=== PATIENT | male | born 1960 | race Caucasian/White ===

== ENCOUNTER 2016-12-12 19:06 | Inpatient (IN) ==
--- NOTE | 2016-12-12 19:17 | Emergency Department Note ---
Disposition Clinical Impression: COPD (chronic obstructive pulmonary disease), Lung cancer Disposition: Admitted As Inpatient Condition: Fair Referrals: NO,PCP [Primary Care Provider] - Forms: ED Satisfaction Letter General Adult HPI - General Chief complaint: ED Shortness of Breath/Dyspnea Stated complaint: villa, CP Time Seen by Provider: 12/12/16 19:09 - Related Data Home Medications Medication Instructions Recorded Confirmed Albuterol Sulfate [Ventolin Hfa] 2 puff IH Q6HR PRN 06/06/15 06/23/16 Budesonide/Formoterol 160/4.5 2 puff IH BIDR 06/06/15 06/23/16 [Symbicort] Famotidine [Pepcid] 20 mg PO BID 06/06/15 06/23/16 Ipratropium/Albuterol Neb [Duoneb] 3 ml IH Q6HR 06/06/15 06/23/16 Pravastatin Sodium [Pravachol] 20 mg PO QPM 06/06/15 06/23/16 Roflumilast [Daliresp] 500 mcg PO DAILY 06/06/15 06/23/16 Previous Rx's Medication Instructions Recorded Montelukast [Singulair] 10 mg PO DAILY #30 tablet 06/08/15 Folic Acid 1 mg PO DAILY #30 tablet 09/18/15 Lisinopril-HCTZ 10-12.5 [Prinzide 1 each PO DAILY #30 tablet 09/18/15 10-12.5] Thiamine (B-1) [Vitamin B-1] 100 mg PO DAILY #30 tablet 09/18/15 Tiotropium [Spiriva] 18 mcg IH 0700 #30 inh 09/18/15 Vitamin B Complex/Vit C/Vit E 1 each PO DAILY #30 tablet 09/18/15 [Stresstab] Amoxicillin/Clavulanate [Augmentin] 875 mg PO BIDWM #20 tablet 06/23/16 predniSONE [PredniSONE] 40 mg PO DAILY #10 tablet 06/23/16 HYDROcodone/Acet 5/325 mg [[place] 1 tab PO Q6H #16 tab 08/29/16 5-325 mg] Promethazine/Dextromethorphan 5 ml PO Q4-6H #240 syrup 08/29/16 [Promethazine-Dm Syrup] levoFLOXacin [Levaquin] 500 mg PO DAILY #7 tablet 08/29/16 HYDROcodone/Acet 5/325 mg [[place] 1 tab PO Q6H #16 tab 09/23/16 5-325 mg] Allergies Allergy/AdvReac Type Severity Reaction Status Date / Time No Known Allergies Allergy Verified 06/23/16 11:39 Past Medical History - Past Medical History Medical history: Reports: asthma, COPD, hyperlipidemia, hypertension, other Surgical history: Reports: no surgical history Psychiatric history: Reports: no psych history - Social History Smoking Status: Current every day smoker Smokeless Tobacco Status: No Alcohol use: Reports: heavy, recent Drug use: Reports: none Course Vital Signs Temperature 0 F L 12/12/16 19:10 Pulse Rate 135 12/12/16 19:10 Respiratory Rate 20 12/12/16 19:10 Blood Pressure 123/79 12/12/16 19:10 O2 Sat by Pulse Oximetry 95 12/12/16 19:10 Temperature 97.6 F 12/12/16 19:44 Pulse Rate 130 12/12/16 19:44 Respiratory Rate 24 12/12/16 19:45 Blood Pressure 177/77 12/12/16 19:44 O2 Sat by Pulse Oximetry 98 12/12/16 19:45 Oxygen Delivery Oxygen Delivery Nasal Cannula Medical Decision Making - Lab Data Result diagrams: 12/12/16 19:39 12/12/16 19:39 Lab Results 12/12/16 12/12/16 12/12/16 Range/Units 19:39 19:39 19:39 WBC 13.8 H (4.3-11.1) K/mcL RBC 3.52 L (4.19-5.50) M/mcL Hgb 9.3 L (12.9-16.9) g/dL Hct 29.7 L (37.5-50.1) % MCV 84.4 (83.0-100.0) fL MCH 26.4 L (28.0-33.3) pg MCHC 31.3 L (31.6-35.5) g/dL RDW 15.2 H (11.5-14.5) % Plt Count 536 H (140-400) K/mcL MPV 8.9 L (9.4-12.4) fL Immature Gran % 0.3 (0-4) % Seg Neutrophils % 81.3 % Lymphocytes % 8.1 % Monocytes % 10.2 % Eosinophils % 0.0 % Basophils % 0.1 % Neutrophils # 11.2 H (1.6-8.9) K/mcL Lymphocytes # 1.1 (0.6-4.6) K/mcL Monocytes # 1.4 H (0.0-1.3) K/mcL Eosinophils # 0.0 (0.0-0.6) K/mcL Basophils # 0.0 (0.0-0.2) K/mcL Sodium 136 (136-145) mEq/L Potassium 3.9 (3.5-4.5) mEq/L Chloride 90 L (98-109) mEq/L Carbon Dioxide 29 (19-29) mEq/L BUN 12 (8-26) mg/dL Creatinine 0.61 L (0.72-1.25) mg/dL Est GFR ( Amer) > 60 (> 60) Est GFR (Non-Af Amer) > 60 (> 60) BUN/Creatinine Ratio 20 (6-26) Glucose 86 (70-99) mg/dL Calculated Osmolality 281 (280-300) Lactic Acid (0.5-2.2) mmol/L Calcium 9.8 (8.6-10.8) mg/dL Troponin I 0.00 (0-0.03) ng/mL B-Natriuretic Peptide (0-100) pg/mL 12/12/16 12/12/16 Range/Units 19:39 19:39 WBC (4.3-11.1) K/mcL RBC (4.19-5.50) M/mcL Hgb (12.9-16.9) g/dL Hct (37.5-50.1) % MCV (83.0-100.0) fL MCH (28.0-33.3) pg MCHC (31.6-35.5) g/dL RDW (11.5-14.5) % Plt Count (140-400) K/mcL MPV (9.4-12.4) fL Immature Gran % (0-4) % Seg Neutrophils % % Lymphocytes % % Monocytes % % Eosinophils % % Basophils % % Neutrophils # (1.6-8.9) K/mcL Lymphocytes # (0.6-4.6) K/mcL Monocytes # (0.0-1.3) K/mcL Eosinophils # (0.0-0.6) K/mcL Basophils # (0.0-0.2) K/mcL Sodium (136-145) mEq/L Potassium (3.5-4.5) mEq/L Chloride (98-109) mEq/L Carbon Dioxide (19-29) mEq/L BUN (8-26) mg/dL Creatinine (0.72-1.25) mg/dL Est GFR ( Amer) (> 60) Est GFR (Non-Af Amer) (> 60) BUN/Creatinine Ratio (6-26) Glucose (70-99) mg/dL Calculated Osmolality (280-300) Lactic Acid 1.4 (0.5-2.2) mmol/L Calcium (8.6-10.8) mg/dL Troponin I (0-0.03) ng/mL B-Natriuretic Peptide 43 (0-100) pg/mL Critical Care Time Critical Care Time: Yes Total Critical Care Time: 30 Attestation: Patient presented dyspneic. History of lung cancer. Hospitalist requested BiPAP Attestation Statement - Attestation Attestation: I examined this patient and my medical decision-making was reviewed with the [facility]/PA/Advanced Practice Nurse/Resident Physician. I agree with the documented findings, disposition and treatment plan as described except to the extent set forth below. [id number] time provided. Patient presents via EMS from home complaining of chest pain and dyspnea. He has a history of oxygen dependency, COPD, metastatic lung cancer. Tachycardic on exam. Mildly tachypneic. Patient seen and evaluated in conjunction with the resident physician doctor Fair 21:30: The admitting hospitalist recommended BiPAP and an arterial blood gas. The patient did not tolerate BiPAP. Based on his chest x-ray results the radiologist recommended a CT of his chest. It was mutually agreed in my discussion with the admitting hospitalist Dr. Friedman not to pursue a CT chest at this time due to the patient's inability to lay flat
[2016-12-12] MEDS ORDERED: methylPREDNISolone 125 MG/2 ML VIAL IVP ONE (19:19)
[2016-12-12] MEDS ORDERED: Ipratropium/Albuterol Neb 3 ML IH ONE (19:19)
--- NOTE | 2016-12-12 19:28 | Emergency Department Note ---
Disposition Clinical Impression: COPD (chronic obstructive pulmonary disease) Qualifiers: COPD type: unspecified COPD Qualified Code(s): J44.9 - Chronic obstructive pulmonary disease, unspecified Lung cancer Qualifiers: Laterality: unspecified laterality Lung location: unspecified part of lung Qualified Code(s): C34.90 - Malignant neoplasm of unspecified part of unspecified bronchus or lung Anemia Qualifiers: Anemia type: unspecified type Qualified Code(s): D64.9 - Anemia, unspecified Disposition: Admitted As Inpatient Condition: Fair Time of Disposition: 21:08 SOB HPI - General Chief Complaint: ED Shortness of Breath/Dyspnea Stated Complaint: villa, CP Time Seen by Provider: 12/12/16 19:09 Source: patient, EMS Limitations: no limitations Nursing Notes Reviewed: Yes Vital Signs Reviewed: Yes - History of Present Illness Patient is a 56-year-old male who presents to [facility] ED with a chief complaint of difficulty breathing. States the symptoms started approximately 3 days ago. Patient also complaining of some chest pain with this. Denies any nausea, vomiting, fever or chills. Patient is having some generalized abdominal pain and has not had a bowel movement in the last 3 days either. 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 Patient states he was being seen [facility] and receiving radiation treatments up until one month ago. Patient states he does not want to undergo this treatment anymore. I spoke with patient about his CODE STATUS wishes and he would like to be DNR CCA/DNI. Patient is open to talks about palliative care. Pt Subjective Complaint: shortness of breath Onset (ago): day(s) Severity: severe Consistency/Duration: gradually worsening Improves with: oxygen, rest, bronchodilators Worsens with: exertion Known history of: COPD, other (Lung CA) Associated symptoms: Reports: chest pain. Denies: fever, cough, diaphoresis, nausea/vomiting, abdominal pain Treatment prior to arrival: bronchodilator Cough present: No - Related Data Home oxygen amount: 3 liters Home Medications Medication Instructions Recorded Confirmed Albuterol Sulfate [Ventolin Hfa] 2 puff IH Q6HR PRN 06/06/15 06/23/16 Budesonide/Formoterol 160/4.5 2 puff IH BIDR 06/06/15 06/23/16 [Symbicort] Famotidine [Pepcid] 20 mg PO BID 06/06/15 06/23/16 Ipratropium/Albuterol Neb [Duoneb] 3 ml IH Q6HR 06/06/15 06/23/16 Pravastatin Sodium [Pravachol] 20 mg PO QPM 06/06/15 06/23/16 Roflumilast [Daliresp] 500 mcg PO DAILY 06/06/15 06/23/16 Previous Rx's Medication Instructions Recorded Montelukast [Singulair] 10 mg PO DAILY #30 tablet 06/08/15 Folic Acid 1 mg PO DAILY #30 tablet 09/18/15 Lisinopril-HCTZ 10-12.5 [Prinzide 1 each PO DAILY #30 tablet 09/18/15 10-12.5] Thiamine (B-1) [Vitamin B-1] 100 mg PO DAILY #30 tablet 09/18/15 Tiotropium [Spiriva] 18 mcg IH 0700 #30 inh 09/18/15 Vitamin B Complex/Vit C/Vit E 1 each PO DAILY #30 tablet 09/18/15 [Stresstab] Amoxicillin/Clavulanate [Augmentin] 875 mg PO BIDWM #20 tablet 06/23/16 predniSONE [PredniSONE] 40 mg PO DAILY #10 tablet 06/23/16 HYDROcodone/Acet 5/325 mg [[place] 1 tab PO Q6H #16 tab 08/29/16 5-325 mg] Promethazine/Dextromethorphan 5 ml PO Q4-6H #240 syrup 08/29/16 [Promethazine-Dm Syrup] levoFLOXacin [Levaquin] 500 mg PO DAILY #7 tablet 08/29/16 HYDROcodone/Acet 5/325 mg [[place] 1 tab PO Q6H #16 tab 09/23/16 5-325 mg] Allergies Allergy/AdvReac Type Severity Reaction Status Date / Time No Known Allergies Allergy Verified 06/23/16 11:39 All systems ED: reviewed and negative except as stated. Past Medical History - Past Medical History Attestation: Yes The following information was validated with the patient. Source: patient Medical history: Reports: asthma, COPD, hyperlipidemia, hypertension, other Surgical history: Reports: no surgical history Psychiatric history: Reports: no psych history - Social History Smoking Status: Current every day smoker Smokeless Tobacco Status: No Alcohol use: Reports: heavy, recent Drug use: Reports: none Physical Exam - General Limitations: no limitations General appearance: alert - Head Head exam: atraumatic, normocephalic, normal inspection - Eye Eye exam: Present: normal appearance, PERRL, EOMI - ENT ENT exam: normal exam, normal oropharynx, mucous membranes moist - Neck Neck exam: Present: normal inspection, full ROM, trachea midline - Chest Chest inspection: Present: normal inspection, symmetric chest wall rise - Respiratory Respiratory exam: Present: wheezes, other (tight breath sounds b/l) - Cardiovascular Cardiovascular exam: Present: normal rhythm, tachycardia - Abdominal Exam Abdominal exam: Present: soft, tenderness, diminished bowel sounds, hernia Abdominal tenderness: Present: diffuse - Extremities Exam Extremities exam: Present: normal inspection, full ROM. Absent: tenderness, pedal edema - Back Exam Back exam: Present: normal inspection, full ROM. Absent: tenderness - Neurological Exam Neurological exam: Present: alert - Psychiatric Psychiatric exam: Present: normal affect, normal mood - Skin Skin exam: Present: warm, dry, intact, normal color Course Course Narrative: Patient seen and examined. Difficulty breathing, suspect COPD exacerbation versus worsening lung cancer. Spoke with patient about CODE STATUS and he does not want any chest compressions and medications were to stop and does not want intubation. His CODE STATUS is DNR CCA/DNI. We will initiate dyspnea workup and give continuous DuoNeb treatment. - Reevaluation(s) Reevaluation #1: Lab work shows some mild leukocytosis, worsening anemia from previously. Chest x-ray shows right upper lobe opacification. Appears worse from previous chest x -ray. We will admit for COPD exacerbation and patient is open to talking with palliative care. I spoke with hospitalist Dr. Friedman who has accepted patient for admission. He would like an ABG as well as BiPAP started. Time: 20:59 Reevaluation #2: Chest x-ray read shows moderate-sized right-sided pleural effusion as well as almost complete opacification of the right upper lobe. A chest CT is recommended. However I do not feel that patient will tolerate laying down on a CAT scan at this point. We will have him continue on BiPAP and maybe try a CT later after admission. Time: 21:07 Vital Signs Temperature 0 F L 12/12/16 19:10 Pulse Rate 135 12/12/16 19:10 Respiratory Rate 20 12/12/16 19:10 Blood Pressure 123/79 12/12/16 19:10 O2 Sat by Pulse Oximetry 95 12/12/16 19:10 Temperature 98 F 12/12/16 21:53 Pulse Rate 130 12/12/16 19:44 Respiratory Rate 20 12/12/16 21:53 Blood Pressure 118/61 12/12/16 21:53 O2 Sat by Pulse Oximetry 91 12/12/16 21:17 Oxygen Delivery Oxygen Delivery Nasal Cannula Shortness of Breath/Dyspnea - Medical Records Medical records reviewed: Yes I reviewed the patient's medical records. - Lab Data Lab results reviewed: Yes I reviewed the patient's lab results. Result diagrams: 12/12/16 19:39 12/12/16 19:39 Lab Results 12/12/16 12/12/16 12/12/16 Range/Units 19:39 19:39 19:39 WBC 13.8 H (4.3-11.1) K/mcL RBC 3.52 L (4.19-5.50) M/mcL Hgb 9.3 L (12.9-16.9) g/dL Hct 29.7 L (37.5-50.1) % MCV 84.4 (83.0-100.0) fL MCH 26.4 L (28.0-33.3) pg MCHC 31.3 L (31.6-35.5) g/dL RDW 15.2 H (11.5-14.5) % Plt Count 536 H (140-400) K/mcL MPV 8.9 L (9.4-12.4) fL Immature Gran % 0.3 (0-4) % Seg Neutrophils % 81.3 % Lymphocytes % 8.1 % Monocytes % 10.2 % Eosinophils % 0.0 % Basophils % 0.1 % Neutrophils # 11.2 H (1.6-8.9) K/mcL Lymphocytes # 1.1 (0.6-4.6) K/mcL Monocytes # 1.4 H (0.0-1.3) K/mcL Eosinophils # 0.0 (0.0-0.6) K/mcL Basophils # 0.0 (0.0-0.2) K/mcL VBG pH (7.32-7.42) pH Units VBG pCO2 (41-51) mmHg VBG pO2 (25-40) mmHg VBG HCO3 (21-27) mEq/L Sodium 136 (136-145) mEq/L Potassium 3.9 (3.5-4.5) mEq/L Chloride 90 L (98-109) mEq/L Carbon Dioxide 29 (19-29) mEq/L BUN 12 (8-26) mg/dL Creatinine 0.61 L (0.72-1.25) mg/dL Est GFR ( Amer) > 60 (> 60) Est GFR (Non-Af Amer) > 60 (> 60) BUN/Creatinine Ratio 20 (6-26) Glucose 86 (70-99) mg/dL Calculated Osmolality 281 (280-300) Lactic Acid (0.5-2.2) mmol/L Calcium 9.8 (8.6-10.8) mg/dL Troponin I 0.00 (0-0.03) ng/mL B-Natriuretic Peptide (0-100) pg/mL 12/12/16 12/12/16 12/12/16 Range/Units 19:39 19:39 21:15 WBC (4.3-11.1) K/mcL RBC (4.19-5.50) M/mcL Hgb (12.9-16.9) g/dL Hct (37.5-50.1) % MCV (83.0-100.0) fL MCH (28.0-33.3) pg MCHC (31.6-35.5) g/dL RDW (11.5-14.5) % Plt Count (140-400) K/mcL MPV (9.4-12.4) fL Immature Gran % (0-4) % Seg Neutrophils % % Lymphocytes % % Monocytes % % Eosinophils % % Basophils % % Neutrophils # (1.6-8.9) K/mcL Lymphocytes # (0.6-4.6) K/mcL Monocytes # (0.0-1.3) K/mcL Eosinophils # (0.0-0.6) K/mcL Basophils # (0.0-0.2) K/mcL VBG pH 7.41 (7.32-7.42) pH Units VBG pCO2 54 H (41-51) mmHg VBG pO2 29 (25-40) mmHg VBG HCO3 34.2 H (21-27) mEq/L Sodium (136-145) mEq/L Potassium (3.5-4.5) mEq/L Chloride (98-109) mEq/L Carbon Dioxide (19-29) mEq/L BUN (8-26) mg/dL Creatinine (0.72-1.25) mg/dL Est GFR ( Amer) (> 60) Est GFR (Non-Af Amer) (> 60) BUN/Creatinine Ratio (6-26) Glucose (70-99) mg/dL Calculated Osmolality (280-300) Lactic Acid 1.4 (0.5-2.2) mmol/L Calcium (8.6-10.8) mg/dL Troponin I (0-0.03) ng/mL B-Natriuretic Peptide 43 (0-100) pg/mL - Radiology Data Radiology results reviewed: Yes I reviewed the patient's radiology results. Chest X-Ray 12/12/16 19:20 IMPRESSION: Dense infiltrates with very little aeration of the right lateral lung. The left lung is clear. Moderate right effusion. RECOMMENDATION: Chest CT D/ / Karen Medrano MD / Karen Medrano MD Interpreting Provider: Karen Medrano MD - EKG Data EKG attestation: Yes I reviewed and interpreted this EKG. EKG results narrative: EKG done at 1914 shows sinus tachycardia with a rate of [address] elevation or depression. Normal axis.
[2016-12-12 19:50] LABS: Basophils % 0.1 %; Hematocrit 29.7 % (37.5-50.1); Hemoglobin 9.3 g/dL (12.9-16.9); Immature Granulocytes % 0.3 % (0-4); Lymphocytes # 1.1 K/mcL (0.6-4.6); Lymphocytes % 8.1 %; Mean Corpuscular HGB Conc 31.3 g/dL (31.6-35.5); Mean Corpuscular Hemoglobin 26.4 pg (28.0-33.3); Mean Corpuscular Volume 84.4 fL (83.0-100.0); Mean Platelet Volume 8.9 fL (9.4-12.4); Monocytes # 1.4 K/mcL (0.0-1.3); Monocytes % 10.2 %; Neutrophils # 11.2 K/mcL (1.6-8.9); Platelet Count 536 K/mcL (140-400); Red Blood Count 3.52 M/mcL (4.19-5.50); Red Cell Distribution Width 15.2 % (11.5-14.5); Segmented Neutrophils % 81.3 %
[2016-12-12 20:04] LABS: BUN/Creatinine Ratio 20 (6-26); Blood Urea Nitrogen 12 mg/dL (8-26); Calcium 9.8 mg/dL (8.6-10.8); Carbon Dioxide 29 mEq/L (19-29); Chloride 90 mEq/L (98-109); Glucose 86 mg/dL (70-99); Osmolality,Calculated 281 (280-300); Potassium 3.9 mEq/L (3.5-4.5); Sodium 136 mEq/L (136-145); eGFR For African Americans > 60 (> 60); eGFR For Non-African Americans > 60 (> 60)
[2016-12-12] MEDS ORDERED: *HR* Morphine 2 MG/ML SYRINGE IVP ONE (20:53)
[2016-12-12 21:41] LABS: VBG HCO3 34.2 mEq/L (21-27); VBG PH 7.41 pH Units (7.32-7.42)
[2016-12-12] MEDS ORDERED: Furosemide 40 MG/4 ML VIAL IVP ONE (22:56)
--- NOTE | 2016-12-12 23:08 | Internal Med History&Physical ---
Date of Encounter: 12/12/16 Time of Encounter: 23:07 Assessment and Plan (1) HCAP (healthcare-associated pneumonia) Current visit: Yes Status: Acute I will start the patient on vancomycin and Zosyn. Sputum and blood cultures. (2) Acute respiratory failure with hypoxia Current visit: Yes Status: Acute Patient is on 5 L of nasal oxygen still working to breathe I have recommended BiPAP supports however patient is unable to tolerate it. Patient is do not intubate. (3) COPD exacerbation Current visit: No Status: Acute We will start IV steroids [id number] nebulizer treatments. (4) Metastatic lung cancer (metastasis from lung to other site) Current visit: Yes Status: Acute Patient has next to the bone. Patient has been receiving radiation therapy however he could not tolerate it. He does not want any further chemotherapy or radiation. I have discussed quote status with the patient and he wants to be do not resuscitate, do not intubate comfort care arrest. I will consult palliative care. Qualifiers: Qualified Code(s): C34.90 - Malignant neoplasm of unspecified part of unspecified bronchus or lung Internal Medicine - H&P: HPI Chief complaint: sob History of present illness: Mr. Ibrahim is a 56 year old male patient with an unfortunate history of metastatic lung cancer has been receiving radiation therapy but decided to quit a month ago, COPD presents to the emergency room today with a main component of shortness of breath. For the past 3 days patient has been noticing progressive shortness of breath to the point where he is unable to present rest associated with productive cough, chills and chest wheezing. Patient is requiring 3 L of oxygen on arrival to emergency room. Patient still working to breathe during my interview and is unable to tolerate BiPAP. Patient is complaining of pain in the left hip area of the site of metastasis. Patient is refusing any more chemotherapy or radiation therapy. Past Med Surg Social Fam HX - Past Medical History Medical history: asthma, COPD, hyperlipidemia, hypertension, other Psychiatric history: no psych history - Past Surgical History Surgical History: no surgical history - Social History Smoking Status: Current every day smoker Smokeless Tobacco Status: No Alcohol use: heavy, recent Drug use: none - Family History Father Adopted: No Family Member Ethnicity: Non- Living Status: Hx Family Cardiac Disorders: Yes Hx Family Respiratory Disorders: Yes Hx Family Cancer: No Hx Family GI Disorders: No Hx Family Endocrine Disorder: No Hx Family Neuromuscular Disorders: No Hx Family Neurologic Disorders: No Hx Family HEENT Disorders: No Hx Family Autoimmune Disorders: No Mother Adopted: No Family Member Ethnicity: Non- Living Status: Hx Family Cardiac Disorders: No Hx Family Respiratory Disorders: No Hx Family Cancer: Yes Hx Family GI Disorders: No Hx Family Endocrine Disorder: No Hx Family Neuromuscular Disorders: No Hx Family Neurologic Disorders: No Hx Family HEENT Disorders: No Hx Family Autoimmune Disorders: No Internal Medicine - H&P: Meds Albuterol Sulfate [Ventolin Hfa] 2 puff IH Q6HR PRN 06/06/15 [History] Budesonide/Formoterol 160/4.5 [Symbicort] 2 puff IH BIDR 06/06/15 [History] Famotidine [Pepcid] 20 mg PO BID 06/06/15 [History] Ipratropium/Albuterol Neb [Duoneb] 3 ml IH Q6HR 06/06/15 [History] Pravastatin Sodium [Pravachol] 20 mg PO QPM 06/06/15 [History] Roflumilast [Daliresp] 500 mcg PO DAILY 06/06/15 [History] Montelukast [Singulair] 10 mg PO DAILY #30 tablet 06/08/15 [Rx] Folic Acid 1 mg PO DAILY #30 tablet 09/18/15 [Rx] Lisinopril-HCTZ 10-12.5 [Prinzide 10-12.5] 1 each PO DAILY #30 tablet 09/18/15 [ Rx] Thiamine (B-1) [Vitamin B-1] 100 mg PO DAILY #30 tablet 09/18/15 [Rx] Tiotropium [Spiriva] 18 mcg IH 0700 #30 inh 09/18/15 [Rx] Vitamin B Complex/Vit C/Vit E [Stresstab] 1 each PO DAILY #30 tablet 09/18/15 [ Rx] Amoxicillin/Clavulanate [Augmentin] 875 mg PO BIDWM #20 tablet 06/23/16 [Rx] predniSONE [PredniSONE] 40 mg PO DAILY #10 tablet 06/23/16 [Rx] HYDROcodone/Acet 5/325 mg [[place] 5-325 mg] 1 tab PO Q6H #16 tab 08/29/16 [Rx] Promethazine/Dextromethorphan [Promethazine-Dm Syrup] 5 ml PO Q4-6H #240 syrup 08/29/16 [Rx] levoFLOXacin [Levaquin] 500 mg PO DAILY #7 tablet 08/29/16 [Rx] HYDROcodone/Acet 5/325 mg [[place] 5-325 mg] 1 tab PO Q6H #16 tab 09/23/16 [Rx] Allergies No Known Allergies Allergy (Verified 06/23/16 11:39) All Systems PM: A 10-system review of systems was performed and is negative for pertinent findings except as documented above in the HPI. Review of systems: 10 point review of systems is negative except for HPI. - Constitutional Vitals: Temp Pulse Resp BP Pulse Ox 98 F 130 20 118/61 91 12/12/16 21:53 12/12/16 19:44 12/12/16 21:53 12/12/16 21:53 12/12/16 21:17 Exam: Gen.: patient is alert oriented times 3 cardiac: normal S1 S2 no additional sounds or murmurs chest: Diminished air entry, expiratory wheezing. abdomen soft nontender nondistended normal bowel sounds lower extremity no swelling. Neuro: no new focal deficits Internal Med - H&P Results - Labs CBC & Chem 7: 12/12/16 19:39 12/12/16 19:39
[2016-12-13] MEDS: Ipratropium/Albuterol Neb 3 ML IH SCH ×7 (00:11→20:42)
[2016-12-13] MEDS: Piperacillin/Tazobactam 3.375 GM in D5% in Water (Mini-Bag+) 100 ML IVPB SCH ×3 (00:44→15:49)
[2016-12-13] MEDS: Vancomycin 1,000 MG in D5% in Water 250 ML IVPB SCH ×2 (00:44→10:41)
[2016-12-13] MEDS: methylPREDNISolone 125 MG/2 ML VIAL IVP SCH ×3 (00:44→15:48)
[2016-12-13 00:59] LABS: Basophils % 0.1 %; Hematocrit 27.1 % (37.5-50.1); Hemoglobin 8.4 g/dL (12.9-16.9); Immature Granulocytes % 0.7 % (0-4); Lymphocytes # 0.3 K/mcL (0.6-4.6); Lymphocytes % 2.3 %; Mean Corpuscular Hemoglobin 25.8 pg (28.0-33.3); Mean Corpuscular Volume 83.4 fL (83.0-100.0); Mean Platelet Volume 8.5 fL (9.4-12.4); Monocytes # 0.2 K/mcL (0.0-1.3); Monocytes % 1.3 %; Neutrophils # 11.2 K/mcL (1.6-8.9); Platelet Count 527 K/mcL (140-400); Red Blood Count 3.25 M/mcL (4.19-5.50); Red Cell Distribution Width 15.1 % (11.5-14.5); Segmented Neutrophils % 95.6 %
[2016-12-13 01:11] LABS: BUN/Creatinine Ratio 21 (6-26); Blood Urea Nitrogen 13 mg/dL (8-26); Calcium 9.4 mg/dL (8.6-10.8); Carbon Dioxide 25 mEq/L (19-29); Chloride 91 mEq/L (98-109); Glucose 108 mg/dL (70-99); Magnesium 1.7 mg/dL (1.6-2.6); Osmolality,Calculated 285 (280-300); Potassium 3.9 mEq/L (3.5-4.5); Sodium 137 mEq/L (136-145); eGFR For African Americans > 60 (> 60); eGFR For Non-African Americans > 60 (> 60)
[2016-12-13] MEDS ORDERED: *HR* HYDROcodone/Acet 5/325 mg TABLET PO PRN (04:42)
[2016-12-13] MEDS: Lactulose Oral Soln 20 GM/30 ML UDC PO PRN (05:16)
[2016-12-13] MEDS ORDERED: *HR* Heparin 5,000 UNIT/ML VIAL SQ SCH (06:00)
[2016-12-13] MEDS ORDERED: *HR* Morphine Sulfate SR (12 HR) 30 MG TABLET.ER PO SCH (06:00)
[2016-12-13] MEDS: Budesonide/Formoterol 160/4.5 MDI IH SCH ×2 (07:22→20:42)
[2016-12-13] MEDS ORDERED: Famotidine 20 MG/2 ML VIAL IVP SCH (09:00)
[2016-12-13] MEDS: Folic Acid 1 MG TABLET PO SCH (09:18)
--- NOTE | 2016-12-13 09:44 | Palliative - Consult Note ---
Date of Encounter: 12/13/16 Time of Encounter: 09:00 - Assessment and Plan (1) Cancer associated pain Current Visit: Yes Status: Acute Assessment and plan: Patient with metastatic lung cancer to left hip. Decided stop chemotherapy and radiation a month ago. Patient complaints of left hip pain. Rates pain a 7/10 and constant ache, localized to the left hip greater trochanter. Limited ROM with flexion and extension. Patient states that he cannot bear weight on the left leg and is bedridden. Plan: 1. Adjust MS Contin to 30 mg every 8 hrs scheduled 2. Add Roxanol for both pain and dyspnea 3. Position for comfort and provide pillows for support of hip (2) Dyspnea Current Visit: Yes Status: Acute Assessment and plan: Patient with pneumonia, right pleural effusion, COPD and metastatic lung cancer. Current smoker. Patient with home O2 provided by [employer]. Current rate is 5L NC with sats at 95%. Patient becomes extremely SOB with movement and conversation. Patient could not tolerate Bipap. Plan: 1. Antibiotics 2. Solumedrol 3. Supplemental O2 4. Position HOB up 5. Fan in room 6. IS x 10 hourly 7. CDB 8. Pursed lip breathing Will continue to monitor Qualifiers: Dyspnea type: unspecified Qualified Code(s): R06.00 - Dyspnea, unspecified (3) Nicotine addiction Current Visit: Yes Status: Acute Assessment and plan: Patient current smoker. Reports smoking 1.2 pack per day. Will add nicotine patch for support. Qualifiers: Nicotine product type: cigarettes Substance use status: uncomplicated Qualified Code(s): F17.210 - Nicotine dependence, cigarettes, uncomplicated (4) Nutrient intake below expected requirement Current Visit: Yes Status: Acute Assessment and plan: Patient with 50 lb weight loss since August. Patient weight 122 lbs. Reports dysphagia and poor po intake. Edentulous. Plan: 1. Nutrition following 2. Beside swallow eval 3. Crush meds 4. Transition to liquid meds (5) Goals of care, counseling/discussion Current Visit: Yes Status: Acute Assessment and plan: Patient alert, open to discussion. Patient currently resides in a building without running water. Patient is estranged from 2 children. States that he has not seen children since childhood. He reports having friends that live around him and help with his care. We discussed that patient has made the decision to stop taking radiation and chemotherapy for metastatic lung cancer. Patient currently has home O2 through [facility] and I explained that he meets criteria for Hospice care. Patient is extremely reluctant to have visitors to his home and is not sure if he would want Hospice. I explained the quality of life care through Hospice and his need for medication adjustments for pain. He reports that he will consider it. His closest friend is MONALISA Vo and that he will consider drafting advanced directives. I discussed the case with Nate Barksdale, community organization worker and he will also discuss DC needs with patient. Will give the patient time to consider his options. Code status DNR CC- A, DNI. (6) HCAP (healthcare-associated pneumonia) Current Visit: Yes Status: Acute (7) Metastatic lung cancer (metastasis from lung to other site) Current Visit: Yes Status: Acute Qualifiers: Qualified Code(s): C34.90 - Malignant neoplasm of unspecified part of unspecified bronchus or lung Palliative-CN HPI - Data of Consult Patient: new to practice Consult date: 12/13/16 Requesting Physician: Cem Friedman Primary Care Provider: PCP NO - Consult Narrative Palliative Care/Comfort Measures: Palliative care Reason for consult: Goals of care & Symptom management History of present illness: Mr. Ibrahim is a 56 year old male who appears older than his stated age. Patient admitted with chest pain and SOB. CXR reveals right lung infiltrates and moderate right lung effusion. The patient is currently on 5L NC O2. Patient with a history of smoking , COPD and metastatic lung cancer to his left hip. The patient reports that he is followed at [facility] for his cancer and that his last radiation treatment was a month ago. The patient now desires to not have any more aggressive treatment for his cancer. He does not want chemotherapy or radiation. This palliative care consult is for goals of care planning and symptom management. CC: Oriana Blackwell MD Past Med Surg Social Fam HX - Past Medical History Source: patient, old records reviewed Medical history: asthma, cancer (lung cancer with mets), COPD, hyperlipidemia, hypertension, malignancy, other Psychiatric history: no psych history - Past Surgical History Surgical History: no surgical history - Social History Smoking Status: Current every day smoker Packs per day: 0.5 Smokeless Tobacco Status: No Alcohol use: heavy, recent Drug use: none Occupational status: unemployed Current living situation: Home (with help of friends) Activity Level: Bed bound Recent Out of Country Travel Within the Last 8 Weeks: No Exposure or Possible Exposure to Illness During Travel: No - Family History Father Adopted: No Family Member Ethnicity: Non- Living Status: Age at : 64 Hx Family Cardiac Disorders: Yes Hx Family Respiratory Disorders: Yes Hx Family Cancer: No Hx Family GI Disorders: No Hx Family Endocrine Disorder: No Hx Family Neuromuscular Disorders: No Hx Family Neurologic Disorders: No Hx Family HEENT Disorders: No Hx Family Autoimmune Disorders: No Mother Adopted: No Family Member Ethnicity: Non- Living Status: Age at : 53 Hx Family Cardiac Disorders: No Hx Family Respiratory Disorders: No Hx Family Cancer: Yes Hx Family GI Disorders: No Hx Family Endocrine Disorder: No Hx Family Neuromuscular Disorders: No Hx Family Neurologic Disorders: No Hx Family HEENT Disorders: No Hx Family Autoimmune Disorders: No Medications and Allergies Albuterol Sulfate [Ventolin Hfa] 2 puff IH Q6HR PRN 06/06/15 [History] Famotidine [Pepcid] 20 mg PO BID 06/06/15 [History] Ipratropium/Albuterol Neb [Duoneb] 3 ml IH Q6HR PRN 06/06/15 [History] Pravastatin Sodium [Pravachol] 20 mg PO QPM 06/06/15 [History] Montelukast [Singulair] 10 mg PO DAILY #30 tablet 06/08/15 [Rx] Folic Acid 1 mg PO DAILY #30 tablet 09/18/15 [Rx] Thiamine (B-1) [Vitamin B-1] 100 mg PO DAILY #30 tablet 09/18/15 [Rx] Lisinopril-HCTZ 10-12.5 [Prinzide 10-12.5] 1 tab PO DAILY 12/13/16 [History] Morphine Sulfate SR (12 HR) [MS Contin] 30 mg PO Q12HR 12/13/16 [History] Oxycodone HCl [Oxycontin] 20 mg PO Q4H PRN 12/13/16 [History] Roflumilast [Daliresp] 500 mcg PO DAILY 12/13/16 [History] Allergies No Known Allergies Allergy (Verified 06/23/16 11:39) Review of systems: left hip pain, bilateral shoulder pain and dysphagia. - Constitutional Constitutional ROS PAL: decreased appetite, fatigue - EENT Ears, nose, mouth, throat: dry mouth - Cardiovascular Cardiovascular ROS: chest pain - Respiratory Respiratory: dyspnea, dyspnea on exertion - Gastrointestinal Gastrointestinal: constipation (last BM 4 days ago) - Genitourinary Genitourinary ROS male: urinary hesitancy - Musculoskeletal Musculoskeletal ROS IM: arthralgias (left hip, and weakness. Patient unable to ambulate), muscle weakness - Integumentary ROS Integumentary: dry skin - Neurological Neurological ROS: weakness - Psychiatric Psychiatric general PM: anxiety Palliative Care-Exam - Constitutional Vitals: Temp Pulse Resp BP Pulse Ox 98.3 F 117 16 104/63 89 12/13/16 06:36 12/13/16 06:36 12/13/16 07:22 12/13/16 06:36 12/13/16 07:22 General appearance: Present: cooperative, thin - Head Head Exam: Present: atraumatic, normal inspection, normocephalic - Eye Eye exam: Present: PERRL Pupils: Present: PERRL - ENT ENT exam: Present: mucous membranes dry - Expanded ENT Exam Mouth Exam: Present: dry mucosa Teeth exam: Present: edentulous - Neck Neck exam: Present: normal inspection - Respiratory Respiratory exam: Present: decreased breath sounds - Expanded Respiratory Exam Location: decreased breath sounds: Left, Right, Lower, rales: Right - Cardiovascular Cardiovascular exam: Present: RRR, +S1 - Expanded Cardiovascular Exam Peripheral pulses: 1+: Femoral (L) PM, Femoral (R) PM, Posterior Tibialis (L), Posterior Tibialis (R), 2+: Carotid (L) PM, Carotid (R) PM, Radial (L), Radial ( R), Dorsalis Pedis (L) PM, Dorsalis Pedis (R) PM - GI/Abdominal Exam GI/Abdominal exam: Present: diminished bowel sounds, soft - Rectal Rectal Exam: Present: deferred - Additional comments: voids per urinal, clear yellow urine - Extremities Exam Extremities exam: Present: tenderness (left hip pain with ROM, limited) - Expanded Upper Extremities Exam Shoulder exam: Present: full ROM Upper Arm exam: Present: full ROM - Expanded Lower Extremities Exam Hip exam: Present: tenderness - Back Exam Back exam: Present: tenderness - Neurological Exam Neurological exam: Present: alert, CN II-XII intact, oriented X3 - Psychiatric Psychiatric exam: Present: normal affect - Skin Skin exam: Present: dry Internal Medicine - CN: Reslt - Labs CBC & Chem 7: 12/13/16 00:41 12/13/16 00:41 Labs: Short CBC 12/13/16 Range/Units 00:41 WBC 11.7 H (4.3-11.1) K/mcL Hgb 8.4 L (12.9-16.9) g/dL Hct 27.1 L (37.5-50.1) % Plt Count 527 H (140-400) K/mcL Neutrophils # 11.2 H (1.6-8.9) K/mcL BMP 12/13/16 00:41 Sodium 137 Potassium 3.9 Chloride 91 L Carbon Dioxide 25 BUN 13 Creatinine 0.63 L Glucose 108 H Calcium 9.4 Consult Discharge Plan - Plan Referrals: NO,PCP [Primary Care Provider] - Palliative Quality Palliative Quality: Screen for Code Status: Yes, Screen for Goals of Care: Yes, Screen for Pain: Yes, If Pain Regimen Started, Initiate Bowel Regimen: Yes, Screen for Nausea/Vomitting: Yes
[2016-12-13] MEDS: Morphine Oral CONC 5 MG/0.25 ML ORAL.SYG PO PRN ×3 (10:38→22:58)
[2016-12-13] MEDS: Nicotine 21 MG PATCH.TD24 TD SCH (10:38)
--- NOTE | 2016-12-13 15:38 | Internal Med Progress Note ---
Date of Encounter: 12/13/16 Time of Encounter: 10:15 - Assessment and plan (1) HCAP (healthcare-associated pneumonia) Current Visit: Yes Status: Acute Assessment and plan: Continue broad-spectrum IV antibiotics and follow-up blood cultures, de- escalate antibiotics accordingly. Supplemental oxygen and supportive care. Patient is noted to be profoundly tachycardic and hypoxic, with underlying lung cancer but refuses CT chest to evaluate for pulmonary embolism. (2) Acute exacerbation of chronic obstructive airways disease Current Visit: Yes Status: Acute Assessment and plan: Improving. Taper down IV steroids as tolerated. Continue scheduled bronchodilators along with supplemental oxygen. Wean down FiO2 as tolerated, currently requiring at least 5 L/m via nasal cannula. Patient does have home oxygen. (3) Tobacco abuse Current Visit: Yes Status: Chronic Assessment and plan: Continue nicotine transdermal patch. (4) Hypertension Current Visit: Yes Status: Chronic Qualifiers: Hypertension type: essential hypertension Qualified Code(s): I10 - Essential (primary) hypertension (5) Hyperlipidemia Current Visit: Yes Status: Chronic Qualifiers: Hyperlipidemia type: unspecified Qualified Code(s): E78.5 - Hyperlipidemia , unspecified (6) Chronic hypoxemic respiratory failure Current Visit: Yes Status: Chronic Assessment and plan: Due to COPD and lung cancer. (7) Lung cancer Current Visit: Yes Status: Chronic Assessment and plan: Patient has history of right-sided lung cancer with bone metastasis, diagnosed about 2 months ago per patient. His oncology is at [facility] and he mentions receiving at least 4 sessions of radiation which has made him extremely weak and he currently declines further cancer treatment in the form of chemoradiation. Palliative care team on board, consult appreciated. Patient currently declines any aggressive medical care and has changed his CODE STATUS to DNR comfort care arrest/DNI. He would like to consider hospice but has not decided yet. He would like to be discharged home when stable and is not agreeable to home health services. Prescription for semi-electric hospital bed and 3 in one bedside commode has been provided to the rn social work today. Pain control with scheduled MS Contin every 8 hours along with when necessary Roxanol. Qualifiers: Laterality: right Lung location: unspecified part of lung Qualified Code( s): C34.91 - Malignant neoplasm of unspecified part of right bronchus or lung - Subjective Interval history: Feels better with improved shortness of breath. Continues to have generalized weakness and significant left hip pain due to bone metastases. Refuses CT chest and further chemotherapy/radiotherapy for lung cancer. - Constitutional Vitals: Temp Pulse Resp BP Pulse Ox 97.7 F 110 18 101/63 99 12/13/16 10:46 12/13/16 10:46 12/13/16 11:24 12/13/16 10:46 12/13/16 11:24 General appearance: Present: cachectic, A&O X 3, answers questions appropriately - Respiratory Respiratory exam: Present: decreased breath sounds (Bilateral decreased air entry), CTAB. Absent: accessory muscle use, rales, rhonchi, wheezes - Cardiovascular Cardiovascular exam: Present: RRR, +S1, +S2, tachycardia. Absent: diastolic murmur, gallop, rubs, systolic murmur - GI/Abdominal GI/Abdominal exam: Present: normal bowel sounds, soft, no peritoneal signs. Absent: distended, tenderness Internal Medicine: Result - Labs CBC & Chem 7: 12/13/16 00:41 12/13/16 00:41 Labs: Short CBC 12/13/16 Range/Units 00:41 WBC 11.7 H (4.3-11.1) K/mcL Hgb 8.4 L (12.9-16.9) g/dL Hct 27.1 L (37.5-50.1) % Plt Count 527 H (140-400) K/mcL Neutrophils # 11.2 H (1.6-8.9) K/mcL BMP 12/13/16 00:41 Sodium 137 Potassium 3.9 Chloride 91 L Carbon Dioxide 25 BUN 13 Creatinine 0.63 L Glucose 108 H Calcium 9.4 Consult Discharge Plan - Plan Referrals: NO,PCP [Primary Care Provider] -
[2016-12-13] MEDS: Famotidine 20 MG TABLET PO SCH (15:49)
[2016-12-13] MEDS: *HR* Morphine Sulfate SR (12 HR) 30 MG TABLET.ER PO SCH (15:49)
[2016-12-13] MEDS: Saliva Stimulant 100ml BOTTLE PO PRN (15:50)
[2016-12-13] MEDS ORDERED: Ondansetron 4 MG/2 ML VIAL IVP PRN (17:25)
--- NOTE | 2016-12-13 17:57 | Electrocardiograph Report ---
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
--- NOTE | 2016-12-13 18:25 | Event Note ---
Date of Encounter: 12/13/16
[2016-12-13] MEDS ORDERED: Vancomycin 1,000 MG in D5% in Water 250 ML IVPB SCH (23:00)
[2016-12-14] MEDS: *HR* Morphine Sulfate SR (12 HR) 30 MG TABLET.ER PO SCH ×3 (00:33→16:37)
[2016-12-14] MEDS: Piperacillin/Tazobactam 3.375 GM in D5% in Water (Mini-Bag+) 100 ML IVPB SCH ×3 (00:33→16:41)
[2016-12-14] MEDS: methylPREDNISolone 125 MG/2 ML VIAL IVP SCH ×3 (00:33→16:38)
[2016-12-14] MEDS: Ipratropium/Albuterol Neb 3 ML IH SCH ×7 (00:49→23:35)
[2016-12-14] MEDS ORDERED: *HR* OxyCODONE/APAP 10/325 TABLET PO STA (00:56)
[2016-12-14 06:15] LABS: Basophils % 0.1 %; Hematocrit 25.5 % (37.5-50.1); Hemoglobin 7.9 g/dL (12.9-16.9); Immature Granulocytes % 0.9 % (0-4); Lymphocytes # 0.3 K/mcL (0.6-4.6); Lymphocytes % 3.1 %; Mean Corpuscular Hemoglobin 25.6 pg (28.0-33.3); Mean Corpuscular Volume 82.8 fL (83.0-100.0); Mean Platelet Volume 8.4 fL (9.4-12.4); Monocytes # 0.6 K/mcL (0.0-1.3); Monocytes % 5.6 %; Neutrophils # 9.5 K/mcL (1.6-8.9); Platelet Count 510 K/mcL (140-400); Red Blood Count 3.08 M/mcL (4.19-5.50); Segmented Neutrophils % 90.3 %
[2016-12-14] MEDS: Famotidine 20 MG TABLET PO SCH ×2 (06:24→16:37)
[2016-12-14] MEDS: *HR* Enoxaparin 40 MG/0.4 ML SYRINGE SQ SCH (06:24)
[2016-12-14] MEDS: Budesonide/Formoterol 160/4.5 MDI IH SCH ×2 (08:39→19:53)
[2016-12-14] MEDS: Folic Acid 1 MG TABLET PO SCH (09:20)
[2016-12-14] MEDS: Nicotine 21 MG PATCH.TD24 TD SCH (09:21)
--- NOTE | 2016-12-14 09:40 | Palliative Progress Note ---
Date of Encounter: 12/14/16 Time of Encounter: 09:38 - Assessment and plan (1) Cancer associated pain Current Visit: Yes Status: Acute Assessment and plan: MR. Ibrahim continues to report uncontrolled pain to the left hip and back. [facility] report reviewed and appropriate. Mr. Ibrahim is currently on MS Contin 30mg every 8 hours. Continue this for long acting pain control. At home Mr. Ibrahim was taking oxycodone 20mg every 4 hours as needed for breakthrough pain. Will adjust hospital doses to match home medication regimen. (2) Therapeutic opioid induced constipation Current Visit: Yes Status: Acute Assessment and plan: Mr. Ibrahim does report an increase in being "bound up" when he takes the oxycodone. Will monitor bowel function. He is currently taking MiraLax daily with PRN lactulose (last dose yesterday). (3) Metastatic lung cancer (metastasis from lung to other site) Current Visit: Yes Status: Acute Qualifiers: Qualified Code(s): C34.90 - Malignant neoplasm of unspecified part of unspecified bronchus or lung (4) Dyspnea Current Visit: Yes Status: Acute Assessment and plan: Supplemental oxygen, steroids, ATB, position for comfort. Qualifiers: Dyspnea type: unspecified Qualified Code(s): R06.00 - Dyspnea, unspecified (5) Nicotine addiction Current Visit: Yes Status: Acute Assessment and plan: Nicoderm Patch daily. Qualifiers: Nicotine product type: cigarettes Substance use status: uncomplicated Qualified Code(s): F17.210 - Nicotine dependence, cigarettes, uncomplicated (6) Nutrient intake below expected requirement Current Visit: Yes Status: Acute Assessment and plan: Dietitian consulted. Speech therapy following. Modified texture diet. (7) Goals of care, counseling/discussion Current Visit: Yes Status: Acute Assessment and plan: Mr. Ibrahim would like to return home without the assistance of home health. He declines hospice services at this time. - Time Spent With Patient Total time spent is greater than 50% in coordination of care (as documented) at patient's floor/unit and/or counseling patient: - Subjective Interval history: Mr. Ibrahim is sitting in bed. Alert and oriented. Reports pain rated 100/10 to his back and left hip area described as a deep ache. His appetite is good and he had a BM yesterday. - Constitutional Vitals: Abnormal lab results RBC 3.08 M/mcL (4.19-5.50) L 12/14/16 05:55 Hgb 7.9 g/dL (12.9-16.9) L 12/14/16 05:55 Hct 25.5 % (37.5-50.1) L 12/14/16 05:55 MCV 82.8 fL (83.0-100.0) L 12/14/16 05:55 MCH 25.6 pg (28.0-33.3) L 12/14/16 05:55 MCHC 31.0 g/dL (31.6-35.5) L 12/14/16 05:55 RDW 15.0 % (11.5-14.5) H 12/14/16 05:55 Plt Count 510 K/mcL (140-400) H 12/14/16 05:55 MPV 8.4 fL (9.4-12.4) L 12/14/16 05:55 Neutrophils # 9.5 K/mcL (1.6-8.9) H 12/14/16 05:55 Lymphocytes # 0.3 K/mcL (0.6-4.6) L 12/14/16 05:55 VBG pCO2 54 mmHg (41-51) H 12/12/16 21:15 VBG HCO3 34.2 mEq/L (21-27) H 12/12/16 21:15 Chloride 91 mEq/L (98-109) L 12/13/16 00:41 Creatinine 0.63 mg/dL (0.72-1.25) L 12/13/16 00:41 Glucose 108 mg/dL (70-99) H 12/13/16 00:41 Exam: 56 year old male patient, alert and oriented, - ENT ENT exam: Present: mucous membranes dry, mucous membranes moist - Respiratory Respiratory exam: Present: wheezes (anterior and bilateral. ). Absent: accessory muscle use, respiratory distress - Cardiovascular Cardiovascular exam: Present: RRR. Absent: tachycardia - GI/Abdominal GI/Abdominal exam: Present: hernia, soft. Absent: guarding, tenderness - Extremities Exam Extremities exam: Present: pedal edema - Neurological Exam Neurological exam: Present: alert, altered, oriented X3 - Psychiatric Psychiatric exam: Absent: agitated, anxious - Skin Skin exam: Present: dry, warm Palliative Quality Palliative Quality: Screen for Code Status: Yes, Screen for Goals of Care: Yes, Screen for Pain: Yes, If Pain Regimen Started, Initiate Bowel Regimen: Yes, Screen for Nausea/Vomitting: Yes - Labs CBC & Chem 7: 12/14/16 05:55 12/13/16 00:41 Labs: Laboratory Results - last 24 hr 12/14/16 05:55 WBC 10.5 RBC 3.08 L Hgb 7.9 L Hct 25.5 L MCV 82.8 L MCH 25.6 L MCHC 31.0 L RDW 15.0 H Plt Count 510 H MPV 8.4 L Immature Gran % 0.9 Seg Neutrophils % 90.3 Lymphocytes % 3.1 Monocytes % 5.6 Eosinophils % 0.0 Basophils % 0.1 Neutrophils # 9.5 H Lymphocytes # 0.3 L Monocytes # 0.6 Eosinophils # 0.0 Basophils # 0.0 Consult Discharge Plan - Plan Referrals: NO,PCP [Primary Care Provider] -
[2016-12-14] MEDS ORDERED: *HR* OxyCODONE Immed Rel 15 MG TABLET PO PRN (09:51)
[2016-12-14] MEDS ORDERED: Morphine Oral CONC 5 MG/0.25 ML ORAL.SYG PO PRN (09:52)
[2016-12-14] MEDS: *HR* OxyCODONE Immed Rel 15 MG TABLET PO PRN ×4 (10:31→22:43)
[2016-12-14] MEDS: Vancomycin 1,250 MG in D5% in Water 250 ML IVPB SCH ×2 (11:58→22:44)
[2016-12-14] MEDS ORDERED: Aminoglycoside Consult 1 EACH MC ONE (12:00)
--- NOTE | 2016-12-14 18:33 | Internal Med Progress Note ---
Date of Encounter: 12/14/16 Time of Encounter: 10:00 - Assessment and plan (1) DVT prophylaxis Current Visit: Yes Status: Acute Assessment and plan: Lovenox subcutaneously (2) COPD exacerbation Current Visit: No Status: Acute Assessment and plan: Pt is on antibiotic. We will continue IV steroids and bronchodilator. Continue supportive treatment with oxygen and BiPAP as needed (3) HCAP (healthcare-associated pneumonia) Current Visit: Yes Status: Acute Assessment and plan: Continue broad-spectrum IV antibiotics and follow-up blood cultures, de- escalate antibiotics accordingly. Supplemental oxygen and supportive care. Patient is noted to be profoundly tachycardic and hypoxic, with underlying lung cancer but refuses CT chest to evaluate for pulmonary embolism. Pt is at high risk because he is on vancomycin. Need close monitoring (4) Acute respiratory failure with hypoxia Current Visit: Yes Status: Acute Assessment and plan: Due to lung cancer, pneumonia, and/or COPD exacerbation. We will continue supportive treatment with oxygen and BiPAP (5) Metastatic lung cancer (metastasis from lung to other site) Current Visit: Yes Status: Acute Assessment and plan: Patient did decide to stop her chemotherapy and radiation therapy. Palliative care on case. Qualifiers: Qualified Code(s): C34.90 - Malignant neoplasm of unspecified part of unspecified bronchus or lung (6) Cancer associated pain Current Visit: Yes Status: Acute Assessment and plan: Continue pain medication. Palliative care consult appreciated (7) Tobacco abuse Current Visit: Yes Status: Chronic Assessment and plan: Continue nicotine transdermal patch. - Time Spent With Patient Greater than 35 minutes - Subjective Interval history: Patient is a 56-year-old male admitted for shortness of breath. Past medical history significant for metastatic lung cancer to bone, COPD, hypertension Patient was seen and examined. Still in acute respiratory distress, wheezing, need oxygen to maintain oxygen saturation. No fever. We will continue antibiotic for pneumonia. Continue steroid and bronchodilator. Palliative care consult appreciated, continue pain medication for cancer pain. - Constitutional Vitals: Temp Pulse Resp BP Pulse Ox 97.7 F 75 18 138/68 95 12/14/16 15:32 12/14/16 15:32 12/14/16 17:17 12/14/16 15:32 12/14/16 17:17 General appearance: Present: cachectic, A&O X 3, answers questions appropriately - Head Head exam: Present: atraumatic, normocephalic - Eye Eye exam: Present: PERRL, conjuntiva pink, sclera anicteric Pupils: Present: PERRL - Neck Neck exam general surgery: Present: supple, trachea midline. Absent: lymphadenopathy - Respiratory Respiratory exam: Present: CTAB, wheezes (Diffused wheezes bilaterally). Absent : accessory muscle use, rales, rhonchi - Cardiovascular Cardiovascular exam: Present: RRR, +S1, +S2. Absent: diastolic murmur, gallop, rubs, systolic murmur - GI/Abdominal GI/Abdominal exam: Present: normal bowel sounds, soft, no peritoneal signs. Absent: distended, tenderness - Extremities Exam Extremities exam: Present: warm, radial pulses palpable and symetrical. Absent : calf tenderness, cyanotic, pedal edema - Neurological Exam Neurological exam: Present: CN II-XII intact, oriented X3, no focal deficits. Absent: pronater drift, facial droop, speech deficit - Skin Skin exam: Present: dry, intact Internal Medicine: Result - Labs CBC & Chem 7: 12/14/16 05:55 12/13/16 00:41 Labs: Short CBC 12/14/16 Range/Units 05:55 WBC 10.5 (4.3-11.1) K/mcL Hgb 7.9 L (12.9-16.9) g/dL Hct 25.5 L (37.5-50.1) % Plt Count 510 H (140-400) K/mcL Neutrophils # 9.5 H (1.6-8.9) K/mcL Consult Discharge Plan - Plan Referrals: NO,PCP [Primary Care Provider] -
[2016-12-15] MEDS: *HR* Morphine Sulfate SR (12 HR) 30 MG TABLET.ER PO SCH ×3 (00:02→16:04)
[2016-12-15] MEDS: methylPREDNISolone 125 MG/2 ML VIAL IVP SCH ×3 (00:04→18:20)
[2016-12-15] MEDS: Piperacillin/Tazobactam 3.375 GM in D5% in Water (Mini-Bag+) 100 ML IVPB SCH (00:07)
[2016-12-15] MEDS: *HR* OxyCODONE Immed Rel 15 MG TABLET PO PRN ×4 (02:29→14:21)
[2016-12-15] MEDS: Ipratropium/Albuterol Neb 3 ML IH SCH ×6 (03:45→23:07)
[2016-12-15] MEDS: Famotidine 20 MG TABLET PO SCH ×2 (05:57→16:04)
[2016-12-15] MEDS: *HR* Enoxaparin 40 MG/0.4 ML SYRINGE SQ SCH (05:58)
[2016-12-15 06:22] LABS: Basophils % 0.1 %; Hemoglobin 8.4 g/dL (12.9-16.9); Immature Granulocytes % 1.5 % (0-4); Lymphocytes # 0.4 K/mcL (0.6-4.6); Lymphocytes % 3.5 %; Mean Corpuscular HGB Conc 31.1 g/dL (31.6-35.5); Mean Corpuscular Hemoglobin 26.3 pg (28.0-33.3); Mean Corpuscular Volume 84.4 fL (83.0-100.0); Mean Platelet Volume 8.7 fL (9.4-12.4); Monocytes # 0.7 K/mcL (0.0-1.3); Monocytes % 6.7 %; Neutrophils # 9.4 K/mcL (1.6-8.9); Platelet Count 559 K/mcL (140-400); Red Cell Distribution Width 14.9 % (11.5-14.5); Segmented Neutrophils % 88.2 %
[2016-12-15 06:34] LABS: BUN/Creatinine Ratio 28 (6-26); Blood Urea Nitrogen 17 mg/dL (8-26); Calcium 8.7 mg/dL (8.6-10.8); Carbon Dioxide 36 mEq/L (19-29); Chloride 91 mEq/L (98-109); Glucose 125 mg/dL (70-99); Osmolality,Calculated 287 (280-300); Potassium 4.2 mEq/L (3.5-4.5); Sodium 137 mEq/L (136-145); eGFR For African Americans > 60 (> 60); eGFR For Non-African Americans > 60 (> 60)
[2016-12-15] MEDS: Budesonide/Formoterol 160/4.5 MDI IH SCH ×2 (08:48→19:59)
--- NOTE | 2016-12-15 09:24 | Palliative Progress Note ---
Date of Encounter: 12/15/16 Time of Encounter: 09:00 - Assessment and plan (1) Cancer associated pain Current Visit: No Status: Acute Assessment and plan: Patient tolerating MS Contin every 8 hrs and only used 2 doses BTP Oxycodone. Position for comfort. Continue current regimen. (2) Dyspnea Current Visit: No Status: Acute Assessment and plan: Improving with duonebs. supplemental O2, steroids and antibiotics. Fan in room to facilitate breathing. Qualifiers: Dyspnea type: unspecified Qualified Code(s): R06.00 - Dyspnea, unspecified (3) Nicotine addiction Current Visit: Yes Status: Acute Assessment and plan: Nicotine patch effective. Continue. Qualifiers: Nicotine product type: cigarettes Substance use status: uncomplicated Qualified Code(s): F17.210 - Nicotine dependence, cigarettes, uncomplicated (4) Nutrient intake below expected requirement Current Visit: Yes Status: Acute Assessment and plan: Dietary following. Patient consuming meals without difficulty. (5) Goals of care, counseling/discussion Current Visit: Yes Status: Acute (6) HCAP (healthcare-associated pneumonia) Current Visit: Yes Status: Acute (7) Constipation by delayed colonic transit Current Visit: No Status: Acute Assessment and plan: Patient with + BMs. Current regimen of Miralax and Colace effective. Continue to monitor. (8) Metastatic lung cancer (metastasis from lung to other site) Current Visit: Yes Status: Acute Qualifiers: Qualified Code(s): C34.90 - Malignant neoplasm of unspecified part of unspecified bronchus or lung - Time Spent With Patient Total time spent is greater than 50% in coordination of care (as documented) at patient's floor/unit and/or counseling patient: - Subjective Interval history: Patient sitting up at bedside. Reports feeling better and less SOB with conversation. Tolerating meals well. - Constitutional Vitals: Abnormal lab results RBC 3.20 M/mcL (4.19-5.50) L 12/15/16 06:02 Hgb 8.4 g/dL (12.9-16.9) L 12/15/16 06:02 Hct 27.0 % (37.5-50.1) L 12/15/16 06:02 MCH 26.3 pg (28.0-33.3) L 12/15/16 06:02 MCHC 31.1 g/dL (31.6-35.5) L 12/15/16 06:02 RDW 14.9 % (11.5-14.5) H 12/15/16 06:02 Plt Count 559 K/mcL (140-400) H 12/15/16 06:02 MPV 8.7 fL (9.4-12.4) L 12/15/16 06:02 Neutrophils # 9.4 K/mcL (1.6-8.9) H 12/15/16 06:02 Lymphocytes # 0.4 K/mcL (0.6-4.6) L 12/15/16 06:02 VBG pCO2 54 mmHg (41-51) H 12/12/16 21:15 VBG HCO3 34.2 mEq/L (21-27) H 12/12/16 21:15 Chloride 91 mEq/L (98-109) L 12/15/16 06:02 Carbon Dioxide 36 mEq/L (19-29) H 12/15/16 06:02 Creatinine 0.61 mg/dL (0.72-1.25) L 12/15/16 06:02 BUN/Creatinine Ratio 28 (6-26) H 12/15/16 06:02 Glucose 125 mg/dL (70-99) H 12/15/16 06:02 - Head Head exam: Present: atraumatic, normal inspection, normocephalic - Eye Eye exam: Present: PERRL Pupils: Present: PERRL - ENT ENT exam: Present: normal exam - Neck Neck exam: Present: full ROM - Respiratory Respiratory exam: Present: decreased breath sounds, wheezes - Expanded Respiratory Exam Location: decreased breath sounds: Left, Right, Lower, wheezes: Left, Right, Upper - Cardiovascular Cardiovascular exam: Present: RRR, +S1, +S2 - Expanded Cardiovascular Exam Peripheral pulses: 1+: Femoral (L) PM, Femoral (R) PM, Posterior Tibialis (L), Posterior Tibialis (R), 2+: Carotid (L) PM, Carotid (R) PM, Radial (L), Radial ( R), Dorsalis Pedis (L) PM, Dorsalis Pedis (R) PM - GI/Abdominal GI/Abdominal exam: Present: normal bowel sounds, soft - Additional comments: Voids per urinal - Extremities Exam Extremities exam: Present: tenderness (left hip sore and limited ROM. Bilateral feet with dryness) - Expanded Upper Extremity Exam Elbow exam: Present: full ROM Forearm wrist exam: Present: full ROM Hand wrist exam: Present: full ROM - Expanded Lower Extremity Exam Hip exam: Present: tenderness (left hip weakness with push and pull) - Neurological Exam Neurological exam: Present: alert, CN II-XII intact, oriented X3 - Psychiatric Psychiatric exam: Present: normal affect - Skin Skin exam: Present: normal color, warm Palliative Quality Palliative Quality: Screen for Code Status: Yes, Screen for Goals of Care: Yes, Screen for Pain: Yes, If Pain Regimen Started, Initiate Bowel Regimen: Yes, Screen for Nausea/Vomitting: Yes - Labs CBC & Chem 7: 12/15/16 06:02 12/15/16 06:02 Labs: Laboratory Results - last 24 hr 12/14/16 12/15/16 12/15/16 09:54 06:02 06:02 WBC 10.6 RBC 3.20 L Hgb 8.4 L Hct 27.0 L MCV 84.4 MCH 26.3 L MCHC 31.1 L RDW 14.9 H Plt Count 559 H MPV 8.7 L Immature Gran % 1.5 Seg Neutrophils % 88.2 Lymphocytes % 3.5 Monocytes % 6.7 Eosinophils % 0.0 Basophils % 0.1 Neutrophils # 9.4 H Lymphocytes # 0.4 L Monocytes # 0.7 Eosinophils # 0.0 Basophils # 0.0 Sodium 137 Potassium 4.2 Chloride 91 L Carbon Dioxide 36 H BUN 17 Creatinine 0.61 L Est GFR ( Amer) > 60 Est GFR (Non-Af Amer) > 60 BUN/Creatinine Ratio 28 H Glucose 125 H Calculated Osmolality 287 Calcium 8.7 Vancomycin Trough 12.8 Consult Discharge Plan - Plan Referrals: NO,PCP [Primary Care Provider] -
[2016-12-15] MEDS: Folic Acid 1 MG TABLET PO SCH (09:55)
[2016-12-15] MEDS: Nicotine 21 MG PATCH.TD24 TD SCH (09:55)
[2016-12-15] MEDS: Levofloxacin 750 MG/150 ML 750 MG/150 ML BAG IVPB SCH (09:56)
[2016-12-15] MEDS: Saliva Stimulant 100ml BOTTLE PO PRN (11:29)
[2016-12-15] MEDS: Lactulose Oral Soln 20 GM/30 ML UDC PO PRN (12:27)
--- NOTE | 2016-12-15 17:54 | Internal Med Progress Note ---
Date of Encounter: 12/15/16 Time of Encounter: 10:00 - Assessment and plan (1) DVT prophylaxis Current Visit: Yes Status: Acute Assessment and plan: Lovenox subcutaneously (2) COPD exacerbation Current Visit: No Status: Acute Assessment and plan: Pt is on antibiotic. We will continue IV steroids and bronchodilator. Continue supportive treatment with oxygen and BiPAP as needed (3) HCAP (healthcare-associated pneumonia) Current Visit: Yes Status: Acute Assessment and plan: Continue broad-spectrum IV antibiotics and follow-up blood cultures, de- escalate antibiotics today as blood culture negative. Supplemental oxygen and supportive care. Patient is noted to be profoundly tachycardic and hypoxic, with underlying lung cancer but refuses CT chest to evaluate for pulmonary embolism. (4) Acute respiratory failure with hypoxia Current Visit: Yes Status: Acute Assessment and plan: Due to lung cancer, pneumonia, and/or COPD exacerbation. We will continue supportive treatment with oxygen and BiPAP (5) Metastatic lung cancer (metastasis from lung to other site) Current Visit: Yes Status: Acute Assessment and plan: Patient did decide to stop her chemotherapy and radiation therapy. Palliative care on case. Qualifiers: Qualified Code(s): C34.90 - Malignant neoplasm of unspecified part of unspecified bronchus or lung (6) Cancer associated pain Current Visit: No Status: Acute Assessment and plan: Continue pain medication. Palliative care consult appreciated (7) Tobacco abuse Current Visit: Yes Status: Chronic Assessment and plan: Continue nicotine transdermal patch. - Time Spent With Patient 25 - 35 minutes - Subjective Interval history: Patient is a 56-year-old male admitted for shortness of breath. Past medical history significant for metastatic lung cancer to bone, COPD, hypertension Patient was seen and examined. Still in acute respiratory distress, wheezing, need oxygen to maintain oxygen saturation. No fever. We will continue antibiotic for pneumonia. Blood culture negative, deescalate Abx to levaquin. Continue steroid and bronchodilator. Palliative care consult appreciated, continue pain medication for cancer pain. - Constitutional Vitals: Temp Pulse Resp BP Pulse Ox 97.6 F 107 18 143/83 98 12/15/16 15:28 12/15/16 15:28 12/15/16 15:28 12/15/16 15:28 12/15/16 15:28 General appearance: Present: cachectic, A&O X 3, answers questions appropriately - Head Head exam: Present: atraumatic, normocephalic - Eye Eye exam: Present: PERRL, conjuntiva pink, sclera anicteric Pupils: Present: PERRL - Neck Neck exam general surgery: Present: supple, trachea midline. Absent: lymphadenopathy - Respiratory Respiratory exam: Present: CTAB, wheezes (Diffused wheezes bilaterally). Absent : accessory muscle use, rales, rhonchi - Cardiovascular Cardiovascular exam: Present: RRR, +S1, +S2. Absent: diastolic murmur, gallop, rubs, systolic murmur - GI/Abdominal GI/Abdominal exam: Present: normal bowel sounds, soft, no peritoneal signs. Absent: distended, tenderness - Extremities Exam Extremities exam: Present: warm, radial pulses palpable and symetrical. Absent : calf tenderness, cyanotic, pedal edema - Neurological Exam Neurological exam: Present: CN II-XII intact, oriented X3, no focal deficits. Absent: pronater drift, facial droop, speech deficit - Skin Skin exam: Present: dry, intact Internal Medicine: Result - Labs CBC & Chem 7: 12/15/16 06:02 12/15/16 06:02 Labs: Short CBC 12/15/16 Range/Units 06:02 WBC 10.6 (4.3-11.1) K/mcL Hgb 8.4 L (12.9-16.9) g/dL Hct 27.0 L (37.5-50.1) % Plt Count 559 H (140-400) K/mcL Neutrophils # 9.4 H (1.6-8.9) K/mcL BMP 12/15/16 06:02 Sodium 137 Potassium 4.2 Chloride 91 L Carbon Dioxide 36 H BUN 17 Creatinine 0.61 L Glucose 125 H Calcium 8.7 Consult Discharge Plan - Plan Referrals: Lex Gayle MD [Partnered Physician] - 12/24/16 2:30 pm (Please follow up as scheduled. You will see a GARMENT TAG STRINGER for your first appointment and then after that you can follow up with Dr. Gayle himself. If you have any questions please feel free to call. Thank you!)
[2016-12-15] MEDS ORDERED: *HR* HYDROmorphone 2 MG/ML SYRINGE IVP PRN (18:04)
[2016-12-15] MEDS ORDERED: *HR* OxyCODONE Immed Rel 15 MG TABLET PO PRN ×2 (18:42→18:43)
[2016-12-15] MEDS: *HR* HYDROmorphone 2 MG/ML SYRINGE IVP PRN ×2 (18:52→21:36)
[2016-12-16] MEDS: *HR* Morphine Sulfate SR (12 HR) 30 MG TABLET.ER PO SCH ×3 (00:07→16:20)
[2016-12-16] MEDS: *HR* HYDROmorphone 2 MG/ML SYRINGE IVP PRN ×2 (03:17→06:38)
[2016-12-16] MEDS: Ipratropium/Albuterol Neb 3 ML IH SCH ×6 (03:33→23:39)
[2016-12-16 03:41] LABS: Hematocrit 31.5 % (37.5-50.1); Hemoglobin 9.4 g/dL (12.9-16.9); Immature Granulocytes % 0.7 % (0-4); Lymphocytes # 0.7 K/mcL (0.6-4.6); Lymphocytes % 7.1 %; Mean Corpuscular HGB Conc 29.8 g/dL (31.6-35.5); Mean Corpuscular Hemoglobin 25.5 pg (28.0-33.3); Mean Corpuscular Volume 85.6 fL (83.0-100.0); Mean Platelet Volume 8.3 fL (9.4-12.4); Monocytes # 1.1 K/mcL (0.0-1.3); Monocytes % 11.5 %; Neutrophils # 7.6 K/mcL (1.6-8.9); Platelet Count 621 K/mcL (140-400); Red Blood Count 3.68 M/mcL (4.19-5.50); Red Cell Distribution Width 15.3 % (11.5-14.5); Segmented Neutrophils % 80.7 %
[2016-12-16 03:51] LABS: BUN/Creatinine Ratio 25 (6-26); Blood Urea Nitrogen 16 mg/dL (8-26); Calcium 9.4 mg/dL (8.6-10.8); Carbon Dioxide 36 mEq/L (19-29); Chloride 93 mEq/L (98-109); Glucose 115 mg/dL (70-99); Osmolality,Calculated 290 (280-300); Potassium 4.4 mEq/L (3.5-4.5); Sodium 139 mEq/L (136-145); eGFR For African Americans > 60 (> 60); eGFR For Non-African Americans > 60 (> 60)
[2016-12-16] MEDS: methylPREDNISolone 125 MG/2 ML VIAL IVP SCH ×2 (06:25→16:21)
[2016-12-16] MEDS: *HR* Enoxaparin 40 MG/0.4 ML SYRINGE SQ SCH (06:26)
[2016-12-16] MEDS: Famotidine 20 MG TABLET PO SCH ×2 (06:26→16:20)
[2016-12-16] MEDS: Saliva Stimulant 100ml BOTTLE PO PRN ×2 (06:32→13:29)
[2016-12-16] MEDS ORDERED: *HR* OxyCODONE Immed Rel 15 MG TABLET PO PRN (07:54)
[2016-12-16] MEDS: Folic Acid 1 MG TABLET PO SCH (08:54)
[2016-12-16] MEDS: Nicotine 21 MG PATCH.TD24 TD SCH (08:54)
[2016-12-16] MEDS: Levofloxacin 750 MG/150 ML 750 MG/150 ML BAG IVPB SCH (08:56)
[2016-12-16] MEDS ORDERED: Sennosides/Docusate Sodium TABLET PO SCH (09:00)
[2016-12-16] MEDS: Budesonide/Formoterol 160/4.5 MDI IH SCH ×2 (09:26→20:20)
--- NOTE | 2016-12-16 10:59 | Palliative Progress Note ---
Date of Encounter: 12/16/16 Time of Encounter: 07:20 - Assessment and plan (1) Acute exacerbation of chronic obstructive airways disease Current Visit: Yes Status: Acute Assessment and plan: Continue current therapy per hospitalist team. Patient is responding to therapy overall. (2) Current smoker Current Visit: No Status: Chronic Assessment and plan: If the patient opted for hospice no further attempt was made to stop him from smoking. (3) Cancer associated pain Current Visit: No Status: Acute Assessment and plan: Switching patient over to oral medications from IV. Initially had changed his oral medications to every 2 hours I have now increased them to 20 mg every hour as needed 10 you with the 30 mg every 8. The patient used a total of 4 mg of IV Dilaudid yesterday after the exchange mechanic and 4 mg today since midnight. This is 80 oral morphine equivalents yesterday and 80 oral morphine equivalents thus far today. I have made his oxycodone available at 20 mg every hour as needed. She is 30 oral morphine equivalents she is even more than he was getting IV, will then adjust his long-lasting medication after about a day or so of this. (4) Constipation by delayed colonic transit Current Visit: No Status: Acute Assessment and plan: Had added Senokot to the bowel regimen continue to watch (5) Chronic hypoxemic respiratory failure Current Visit: Yes Status: Chronic Assessment and plan: Continue treatment with steroids and antibiotics plan per hospitalist team (6) Goals of care, counseling/discussion Current Visit: Yes Status: Acute Assessment and plan: The patient is currently DNR [facility] DNI. He does wish to have treatment for this of breath and symptomatic care. He is not wish to have any further aggressive care. Goals of care the patient would like to return home. His home is somewhat [place] shackled and that it is an old welding shed. He does have electricity, toilet facilities refrigerator and has plenty to eat and plenty to drink but no running water. He states however he does have plenty of help with this. He has not been interested in hospice in the past because she is afraid they will let him stay where he is living, however he is willing to consider it if they will work with him on where he lives. I have offered to have a hospice nurse come out and talk to him and they are doing that as we speak. If the patient opts for hospice and hospice is okay with his living conditions, then we will arrange for discharge home with hospice. (7) Lung cancer Current Visit: Yes Status: Chronic Assessment and plan: The patient has stopped all therapy chemotherapy and radiation. If the patient wishes to have hospice this will be as hospice diagnosis. He is currently considering this and discussing with hospice. Qualifiers: Laterality: right Lung location: unspecified part of lung Qualified Code( s): C34.91 - Malignant neoplasm of unspecified part of right bronchus or lung - Time Spent With Patient Total time spent is greater than 50% in coordination of care (as documented) at patient's floor/unit and/or counseling patient: - Subjective Interval history: Pain well controlled with Dilaudid, however he has not tried any oral pain medications yet. States his bowels are not really moving as well as he would like. The patient feels that he does not wish to leave until he is truly able to go and not have to come back. - Constitutional Vitals: Abnormal lab results RBC 3.68 M/mcL (4.19-5.50) L 12/16/16 03:13 Hgb 9.4 g/dL (12.9-16.9) L 12/16/16 03:13 Hct 31.5 % (37.5-50.1) L 12/16/16 03:13 MCH 25.5 pg (28.0-33.3) L 12/16/16 03:13 MCHC 29.8 g/dL (31.6-35.5) L 12/16/16 03:13 RDW 15.3 % (11.5-14.5) H 12/16/16 03:13 Plt Count 621 K/mcL (140-400) H 12/16/16 03:13 MPV 8.3 fL (9.4-12.4) L 12/16/16 03:13 VBG pCO2 54 mmHg (41-51) H 12/12/16 21:15 VBG HCO3 34.2 mEq/L (21-27) H 12/12/16 21:15 Chloride 93 mEq/L (98-109) L 12/16/16 03:13 Carbon Dioxide 36 mEq/L (19-29) H 12/16/16 03:13 Creatinine 0.63 mg/dL (0.72-1.25) L 12/16/16 03:13 Glucose 115 mg/dL (70-99) H 12/16/16 03:13 General appearance: Present: no acute distress - Head Head exam: Present: atraumatic, normal inspection - Eye Eye exam: Present: normal appearance - ENT ENT exam: Present: mucous membranes moist - Neck Neck exam: Present: normal inspection - Respiratory Respiratory exam: Present: decreased breath sounds - Cardiovascular Cardiovascular exam: Present: RRR, tachycardia - GI/Abdominal GI/Abdominal exam: Present: normal bowel sounds, soft. Absent: tenderness - Extremities Exam Extremities exam: Present: normal inspection. Absent: pedal edema, tenderness - Neurological Exam Neurological exam: Present: alert, oriented X3 - Psychiatric Psychiatric exam: Present: normal affect, normal mood. Absent: agitated, anxious - Skin Skin exam: Present: dry, warm Palliative Quality Palliative Quality: Screen for Code Status: Yes, Screen for Goals of Care: Yes, Screen for Pain: Yes, If Pain Regimen Started, Initiate Bowel Regimen: Yes, Screen for Nausea/Vomitting: Yes - Labs CBC & Chem 7: 12/16/16 03:13 12/16/16 03:13 Labs: Laboratory Results - last 24 hr 12/16/16 12/16/16 03:13 03:13 WBC 9.4 RBC 3.68 L Hgb 9.4 L Hct 31.5 L MCV 85.6 MCH 25.5 L MCHC 29.8 L RDW 15.3 H Plt Count 621 H MPV 8.3 L Immature Gran % 0.7 Seg Neutrophils % 80.7 Lymphocytes % 7.1 Monocytes % 11.5 Eosinophils % 0.0 Basophils % 0.0 Neutrophils # 7.6 Lymphocytes # 0.7 Monocytes # 1.1 Eosinophils # 0.0 Basophils # 0.0 Sodium 139 Potassium 4.4 Chloride 93 L Carbon Dioxide 36 H BUN 16 Creatinine 0.63 L Est GFR ( Amer) > 60 Est GFR (Non-Af Amer) > 60 BUN/Creatinine Ratio 25 Glucose 115 H Calculated Osmolality 290 Calcium 9.4 Consult Discharge Plan - Plan Referrals: Lex Gayle MD [Partnered Physician] - 12/24/16 2:30 pm (Please follow up as scheduled. You will see a TABULAR TYPIST for your first appointment and then after that you can follow up with Dr. Gayle himself. If you have any questions please feel free to call. Thank you!)
[2016-12-16] MEDS: *HR* OxyCODONE Immed Rel 5 MG TABLET PO PRN ×4 (11:04→21:32)
[2016-12-16] MEDS ORDERED: Saline Nasal Spray 44 ML BOTTLE NS PRN (11:44)
[2016-12-16] MEDS: Lactulose Oral Soln 20 GM/30 ML UDC PO PRN (13:28)
[2016-12-16] MEDS ORDERED: Methylnaltrexone 12 MG/0.6 ML SYRINGE SQ ONE (16:50)
--- NOTE | 2016-12-16 18:08 | Internal Med Progress Note ---
Date of Encounter: 12/16/16 Time of Encounter: 10:00 - Assessment and plan (1) DVT prophylaxis Current Visit: Yes Status: Acute Assessment and plan: Lovenox subcutaneously (2) COPD exacerbation Current Visit: No Status: Acute Assessment and plan: Pt is on antibiotic. We will continue IV steroids and bronchodilator. Diffused wheezes is also probably caused by lung cancer. Continue supportive treatment with oxygen and BiPAP as needed. As pt plan to go to hospice, start to taper down steroid. (3) HCAP (healthcare-associated pneumonia) Current Visit: Yes Status: Acute Assessment and plan: Cont Abx and supportive treatment. May d/c abx as pt discharge to hospice. (4) Acute respiratory failure with hypoxia Current Visit: Yes Status: Acute Assessment and plan: Due to lung cancer, pneumonia, and/or COPD exacerbation. We will continue supportive treatment with oxygen and BiPAP (5) Metastatic lung cancer (metastasis from lung to other site) Current Visit: Yes Status: Acute Assessment and plan: Patient did decide to stop her chemotherapy and radiation therapy. Palliative care on case. Plan to start hospice Qualifiers: Qualified Code(s): C34.90 - Malignant neoplasm of unspecified part of unspecified bronchus or lung (6) Cancer associated pain Current Visit: No Status: Acute Assessment and plan: Continue pain medication. Palliative care consult appreciated (7) Tobacco abuse Current Visit: Yes Status: Chronic Assessment and plan: Continue nicotine transdermal patch. - Time Spent With Patient 25 - 35 minutes - Subjective Interval history: Patient is a 56-year-old male admitted for shortness of breath. Past medical history significant for metastatic lung cancer to bone, COPD, hypertension Patient was seen and examined. Still in acute respiratory distress, wheezing, need oxygen to maintain oxygen saturation. No fever. Pt has expressed wishes to pursue hospice. [facility] has evaluated pt, plan for hospice service. Will continue current treatment and plan to d/c to home hospice as it is set up. - Constitutional Vitals: Temp Pulse Resp BP Pulse Ox 98.2 F 111 15 128/84 98 12/16/16 15:26 12/16/16 15:26 12/16/16 15:57 12/16/16 15:26 12/16/16 15:57 General appearance: Present: cachectic, A&O X 3, answers questions appropriately - Head Head exam: Present: atraumatic, normocephalic - Eye Eye exam: Present: PERRL, conjuntiva pink, sclera anicteric Pupils: Present: PERRL - Neck Neck exam general surgery: Present: supple, trachea midline. Absent: lymphadenopathy - Respiratory Respiratory exam: Present: CTAB, wheezes (Diffused wheezes bilaterally). Absent : accessory muscle use, rales, rhonchi - Cardiovascular Cardiovascular exam: Present: RRR, +S1, +S2. Absent: diastolic murmur, gallop, rubs, systolic murmur - GI/Abdominal GI/Abdominal exam: Present: normal bowel sounds, soft, no peritoneal signs. Absent: distended, tenderness - Extremities Exam Extremities exam: Present: warm, radial pulses palpable and symetrical. Absent : calf tenderness, cyanotic, pedal edema - Neurological Exam Neurological exam: Present: CN II-XII intact, oriented X3, no focal deficits. Absent: pronater drift, facial droop, speech deficit - Skin Skin exam: Present: dry, intact Internal Medicine: Result - Labs CBC & Chem 7: 12/16/16 03:13 12/16/16 03:13 Labs: Short CBC 12/16/16 Range/Units 03:13 WBC 9.4 (4.3-11.1) K/mcL Hgb 9.4 L (12.9-16.9) g/dL Hct 31.5 L (37.5-50.1) % Plt Count 621 H (140-400) K/mcL Neutrophils # 7.6 (1.6-8.9) K/mcL BMP 12/16/16 03:13 Sodium 139 Potassium 4.4 Chloride 93 L Carbon Dioxide 36 H BUN 16 Creatinine 0.63 L Glucose 115 H Calcium 9.4 Consult Discharge Plan - Plan Referrals: Lex Gayle MD [Partnered Physician] - 12/24/16 2:30 pm (Please follow up as scheduled. You will see a LUMBER PILER for your first appointment and then after that you can follow up with Dr. Gayle himself. If you have any questions please feel free to call. Thank you!)
[2016-12-16] MEDS: Sennosides/Docusate Sodium TABLET PO SCH (21:32)
[2016-12-17] MEDS: *HR* Morphine Sulfate SR (12 HR) 30 MG TABLET.ER PO SCH ×2 (00:29→08:10)
[2016-12-17] MEDS: *HR* OxyCODONE Immed Rel 5 MG TABLET PO PRN ×5 (00:56→13:58)
[2016-12-17] MEDS: Ipratropium/Albuterol Neb 3 ML IH SCH ×3 (03:51→11:07)
[2016-12-17] MEDS: *HR* Enoxaparin 40 MG/0.4 ML SYRINGE SQ SCH (06:05)
[2016-12-17] MEDS: Budesonide/Formoterol 160/4.5 MDI IH SCH (07:35)
[2016-12-17] MEDS: Folic Acid 1 MG TABLET PO SCH (08:10)
[2016-12-17] MEDS: Sennosides/Docusate Sodium TABLET PO SCH (08:10)
[2016-12-17] MEDS: Famotidine 20 MG TABLET PO SCH (08:10)
[2016-12-17] MEDS: Nicotine 21 MG PATCH.TD24 TD SCH (08:11)
--- NOTE | 2016-12-17 08:53 | Palliative Progress Note ---
Date of Encounter: 12/17/16 Time of Encounter: 08:40 - Assessment and plan (1) Acute exacerbation of chronic obstructive airways disease Current Visit: Yes Status: Acute Assessment and plan: Continue current therapy per hospitalist team. Patient is responding to therapy overall. (2) Current smoker Current Visit: No Status: Chronic Assessment and plan: If the patient opted for hospice no further attempt was made to stop him from smoking. (3) Cancer associated pain Current Visit: No Status: Acute Assessment and plan: has done well with oral prn meds.he required 4 prn doses 20 mg roxicodone, in add to the 4 mg of IV Dilaudid before it was stopped for 80 mg oral morphine equivalents and one 15 mg by mouth oxycodone as well. This equates to 224 oral morphine equivalents. Therefore I will increase his lasting morphine by 15 mg per total of 45 mg standard release morphine 3 times a day. And continue his when necessary's. (4) Constipation by delayed colonic transit Current Visit: No Status: Acute Assessment and plan: The patient has some small success with Relistor yesterday, will repeat today also make him though, molasses enema available. Have discussed with nursing staff. The patient wishes to ask for the enema rather than have it prescribed for him. When necessary. (5) Chronic hypoxemic respiratory failure Current Visit: Yes Status: Chronic Assessment and plan: Continue treatment with steroids and antibiotics plan per hospitalist team (6) Goals of care, counseling/discussion Current Visit: Yes Status: Acute Assessment and plan: The patient is currently DNR [facility] DNI. He does wish to have treatment for this of breath and symptomatic care. The patient will be discharged home when appropriate with the hospitalist team to hospice care. Hospice has evaluated the situation and feels they can work with him. Actually has medications written to go home with. DME is being set up today. (7) Lung cancer Current Visit: Yes Status: Chronic Assessment and plan: The patient has stopped all therapy chemotherapy and radiation. The patient has opted for hospice care, when discharged he will be discharged to hospice care. Qualifiers: Laterality: right Lung location: unspecified part of lung Qualified Code( s): C34.91 - Malignant neoplasm of unspecified part of right bronchus or lung - Time Spent With Patient Total time spent is greater than 50% in coordination of care (as documented) at patient's floor/unit and/or counseling patient: - Subjective Interval history: Pain well controlled now with the Roxicodone and a slightly higher dose. he did have a bowel movement yesterday but still feels that his bowels need to move more. Patient has now opted for hospice care, he will be discharged with hospice when ready for discharge. - Constitutional Vitals: Abnormal lab results RBC 3.68 M/mcL (4.19-5.50) L 12/16/16 03:13 Hgb 9.4 g/dL (12.9-16.9) L 12/16/16 03:13 Hct 31.5 % (37.5-50.1) L 12/16/16 03:13 MCH 25.5 pg (28.0-33.3) L 12/16/16 03:13 MCHC 29.8 g/dL (31.6-35.5) L 12/16/16 03:13 RDW 15.3 % (11.5-14.5) H 12/16/16 03:13 Plt Count 621 K/mcL (140-400) H 12/16/16 03:13 MPV 8.3 fL (9.4-12.4) L 12/16/16 03:13 VBG pCO2 54 mmHg (41-51) H 12/12/16 21:15 VBG HCO3 34.2 mEq/L (21-27) H 12/12/16 21:15 Chloride 93 mEq/L (98-109) L 12/16/16 03:13 Carbon Dioxide 36 mEq/L (19-29) H 12/16/16 03:13 Creatinine 0.63 mg/dL (0.72-1.25) L 12/16/16 03:13 Glucose 115 mg/dL (70-99) H 12/16/16 03:13 General appearance: Present: no acute distress - Eye Eye exam: Present: normal appearance - Neck Neck exam: Present: normal inspection - Respiratory Respiratory exam: Present: decreased breath sounds - Cardiovascular Cardiovascular exam: Present: RRR, tachycardia - GI/Abdominal GI/Abdominal exam: Present: hypoactive bowel sounds, soft - Extremities Exam Extremities exam: Present: normal inspection. Absent: pedal edema, tenderness - Neurological Exam Neurological exam: Present: alert, oriented X3 - Psychiatric Psychiatric exam: Absent: agitated, anxious - Skin Skin exam: Present: dry, warm Palliative Quality Palliative Quality: Screen for Code Status: Yes, Screen for Goals of Care: Yes, Screen for Pain: Yes, If Pain Regimen Started, Initiate Bowel Regimen: Yes, Screen for Nausea/Vomitting: Yes - Labs CBC & Chem 7: 12/16/16 03:13 12/16/16 03:13 Consult Discharge Plan - Plan Referrals: Lex Gayle MD [Partnered Physician] - 12/24/16 2:30 pm (Please follow up as scheduled. You will see a JANITOR CUSTODIAN for your first appointment and then after that you can follow up with Dr. Gayle himself. If you have any questions please feel free to call. Thank you!)
[2016-12-17] MEDS ORDERED: Methylnaltrexone 12 MG/0.6 ML SYRINGE SQ ONE (09:00)
[2016-12-17] MEDS ORDERED: levoFLOXacin 750 MG TABLET PO SCH (09:00)
[2016-12-17] MEDS ORDERED: methylPREDNISolone 125 MG/2 ML VIAL IVP SCH (09:00)
[2016-12-17] MEDS ORDERED: Milk and Molasses Enema 200 ML RC PRN (09:02)
[2016-12-17] MEDS ORDERED: Lactulose Oral Soln 20 GM/30 ML UDC PO SCH (09:04)
[2016-12-17 12:01] VITALS: BP 117/77
--- NOTE | 2016-12-17 12:54 | Discharge Summary ---
Date of Encounter: 12/17/16 Time of Encounter: 10:00 - Discharge Diagnosis (1) DVT prophylaxis Priority: Secondary Status: Acute (2) COPD exacerbation Priority: Primary Status: Acute (3) HCAP (healthcare-associated pneumonia) Priority: Primary Status: Acute (4) Acute respiratory failure with hypoxia Priority: Primary Status: Acute (5) Metastatic lung cancer (metastasis from lung to other site) Priority: Primary Status: Acute Qualifiers: Laterality: right Qualified Code(s): C34.91 - Malignant neoplasm of unspecified part of right bronchus or lung (6) Cancer associated pain Priority: Secondary Status: Acute (7) Tobacco abuse Priority: Secondary Status: Chronic (8) Severe protein-calorie malnutrition Priority: Secondary Status: Chronic - Discharge Medications Prescriptions: Morphine Sulfate SR (12 HR) [MS Contin] 45 mg PO Q8HR #15 tab RX: levoFLOXacin [Levaquin] 750 mg PO DAILY #5 tablet OxyCODONE Immed Rel [Roxicodone 15 MG] 20 mg PO Q2H PRN #60 tablet PRN Reason: pain or sob Polyethylene Glycol 3350 [MiraLAX Powder Bulk 17.9 Oz] 1 scoop PO DAILY #510 gm RX: predniSONE [PredniSONE] See Taper PO DAILY #20 tablet Sennosides/Docusate Sodium [Senna Plus] 2 each PO BID #20 tablet Home Medications: RX: Albuterol Sulfate [Ventolin Hfa] 2 puff IH Q6HR PRN 06/06/15 [History] RX: Famotidine [Pepcid] 20 mg PO BID 06/06/15 [History] RX: Ipratropium/Albuterol Neb [Duoneb] 3 ml IH Q6HR PRN 06/06/15 [History] RX: Pravastatin Sodium [Pravachol] 20 mg PO QPM 06/06/15 [History] RX: Montelukast [Singulair] 10 mg PO DAILY #30 tablet 06/08/15 [Rx] RX: Folic Acid 1 mg PO DAILY #30 tablet 09/18/15 [Rx] RX: Thiamine (B-1) [Vitamin B-1] 100 mg PO DAILY #30 tablet 09/18/15 [Rx] Morphine Sulfate SR (12 HR) [MS Contin] 30 mg PO Q12HR 12/13/16 [History] Oxycodone HCl [Oxycontin] 20 mg PO Q4H PRN 12/13/16 [History] RX: Lisinopril-HCTZ 10-12.5 [Prinzide 10-12.5] 1 tab PO DAILY 12/13/16 [History] RX: Roflumilast [Daliresp] 500 mcg PO DAILY 12/13/16 [History] Morphine Sulfate SR (12 HR) [MS Contin] 45 mg PO Q8HR #15 tab 12/17/16 [Rx] OxyCODONE Immed Rel [Roxicodone 15 MG] 20 mg PO Q2H PRN #60 tablet 12/17/16 [Rx] Polyethylene Glycol 3350 [MiraLAX Powder Bulk 17.9 Oz] 1 scoop PO DAILY #510 gm 12/17/16 [Rx] RX: Budesonide/Formoterol 160/4.5 [Symbicort 160/4.5] 2 puff IH BIDR inhaler [Rx] RX: levoFLOXacin [Levaquin] 750 mg PO DAILY #5 tablet 12/17/16 [Rx] RX: predniSONE [PredniSONE] See Taper PO DAILY #20 tablet 12/17/16 [Rx] Sennosides/Docusate Sodium [Senna Plus] 2 each PO BID #20 tablet 12/17/16 [Rx] Allergies/Adverse Reactions: Allergies No Known Allergies Allergy (Verified 06/23/16 11:39) Date of admission: 12/12/16 22:56 Primary care physician: PCP NO Consults: 12/13/16 00:07 Consult to Nutrition [CONS] Routine Comment: Consulting Provider: NUTRITION Reason for Dietary Consult: MST Score 12/13/16 07:56 Consult to Occupational Therapy [CONS] Routine Comment: Evaluate, develop and implement POC Reason for Consult: eval for ecf Discharging clinician: Han Ventura Anticipated date of discharge: 12/17/16 - Patient Status Disposition: Hospice - Home Condition: Fair Functional capacity at discharge: uses cane/walker Overall status at discharge: patient is not back to baseline - Discharge Instructions Follow Up With: Lex Gayle MD [Partnered Physician] - 12/24/16 2:30 pm (Please follow up as scheduled. You will see a MANAGER [employer] for your first appointment and then after that you can follow up with Dr. Gayle himself. If you have any questions please feel free to call. Thank you!) - Diet and Activity Activity: as per physical therapy Diet: advance to your usual diet, other (With the dietary supplement [employer] Milkshake for RENATO and DIN ) Interval History: Mr. Ibrahim is a 56 year old male patient with an unfortunate history of metastatic lung cancer has been receiving radiation therapy but decided to quit a month ago, COPD presents to the emergency room today with a main component of shortness of breath. For the past 3 days patient has been noticing progressive shortness of breath to the point where he is unable to present rest associated with productive cough, chills and chest wheezing. Patient is requiring 3 L of oxygen on arrival to emergency room. Patient still working to breathe during my interview and is unable to tolerate BiPAP. Patient is complaining of pain in the left hip area of the site of metastasis. Patient is refusing any more chemotherapy or radiation therapy. Hospital course: Mr. Ibrahim is a 56 year old male with a history of smoking, COPD, lung cancer with bone metastasis admitted for shortness of breath. Pt was treated as pneumonia and COPD exacerbation. He was given antibiotic, steroid, and bronchodilator. Patient has severe cancer related pain, palliative care consult was called and saw patient. Patient decided that he will pursue hospice care. Will discharge patient today to home hospice. Actually today his wheezing has improved after treatment. I saw and examined patient today. He is a pleasant and happy to be discharged to home hospice. Mild shortness of breath. Vitals are stable. We will continue by mouth antibiotics and by mouth taper down steroids and discharge patient to home hospice. - Time Spent with Patient Total time spent providing and/or coordinating discharge services: 40 min Greater than 30 minutes - Constitutional Vitals: Temp Pulse Resp BP Pulse Ox 98.1 F 113 17 117/77 98 12/17/16 11:59 12/17/16 11:59 12/17/16 11:59 12/17/16 11:59 12/17/16 11:59 General appearance: Present: cachectic, A&O X 3, answers questions appropriately - Head Head exam: Present: atraumatic, normocephalic - Eye Eye exam: Present: PERRL, conjuntiva pink, sclera anicteric Pupils: Present: PERRL - Neck Neck exam general surgery: Present: supple, trachea midline. Absent: lymphadenopathy - Respiratory Respiratory exam: Present: CTAB, wheezes (Scattered wheezes b/l). Absent: accessory muscle use, rales, rhonchi - Cardiovascular Cardiovascular exam: Present: RRR, +S1, +S2. Absent: diastolic murmur, gallop, rubs, systolic murmur - GI/Abdominal GI/Abdominal exam: Present: normal bowel sounds, soft, no peritoneal signs. Absent: distended, tenderness - Extremities Exam Extremities exam: Present: warm, radial pulses palpable and symetrical. Absent : calf tenderness, cyanotic, pedal edema - Neurological Exam Neurological exam: Present: CN II-XII intact, oriented X3, no focal deficits. Absent: pronater drift, facial droop, speech deficit - Skin Skin exam: Present: dry, intact
--- NOTE | 2016-12-17 13:12 | Physician Discharge Referral ---
Home Health/Hosp Referral Info Transfer to: Hospice Provider in Charge Post Discharge: [facility] - Diagnosis (1) DVT prophylaxis Status: Acute (2) COPD exacerbation Status: Acute (3) HCAP (healthcare-associated pneumonia) Status: Acute (4) Acute respiratory failure with hypoxia Status: Acute (5) Metastatic lung cancer (metastasis from lung to other site) Status: Acute (6) Cancer associated pain Status: Acute (7) Tobacco abuse Status: Chronic (8) Severe protein-calorie malnutrition Status: Chronic - Respiratory Orders Oxygen / L per min (2-3) Smoking Cessation: Smoking cessation has been advised. For more information, call the [place] Tobacco Quit Line at 1-133-QXTW-NOW. - Diet/Nutrition Diet/Nutrition Orders: Regular - Services Needed Following services are medically necessary services: Nursing, Home Health Aide - Transfer Medications Prescriptions: Morphine Sulfate SR (12 HR) [MS Contin] 45 mg PO Q8HR #15 tab levoFLOXacin [Levaquin] 750 mg PO DAILY #5 tablet OxyCODONE Immed Rel [Roxicodone 15 MG] 20 mg PO Q2H PRN #60 tablet PRN Reason: pain or sob Polyethylene Glycol 3350 [MiraLAX Powder Bulk 17.9 Oz] 1 scoop PO DAILY #510 gm predniSONE [PredniSONE] See Taper PO DAILY #20 tablet Sennosides/Docusate Sodium [Senna Plus] 2 each PO BID #20 tablet Home Medications: Albuterol Sulfate [Ventolin Hfa] 2 puff IH Q6HR PRN 06/06/15 [History] Famotidine [Pepcid] 20 mg PO BID 06/06/15 [History] Ipratropium/Albuterol Neb [Duoneb] 3 ml IH Q6HR PRN 06/06/15 [History] Pravastatin Sodium [Pravachol] 20 mg PO QPM 06/06/15 [History] Montelukast [Singulair] 10 mg PO DAILY #30 tablet 06/08/15 [Rx] Folic Acid 1 mg PO DAILY #30 tablet 09/18/15 [Rx] Thiamine (B-1) [Vitamin B-1] 100 mg PO DAILY #30 tablet 09/18/15 [Rx] Lisinopril-HCTZ 10-12.5 [Prinzide 10-12.5] 1 tab PO DAILY 12/13/16 [History] Morphine Sulfate SR (12 HR) [MS Contin] 30 mg PO Q12HR 12/13/16 [History] Oxycodone HCl [Oxycontin] 20 mg PO Q4H PRN 12/13/16 [History] Roflumilast [Daliresp] 500 mcg PO DAILY 12/13/16 [History] Budesonide/Formoterol 160/4.5 [Symbicort 160/4.5] 2 puff IH BIDR inhaler [Rx] Morphine Sulfate SR (12 HR) [MS Contin] 45 mg PO Q8HR #15 tab 12/17/16 [Rx] OxyCODONE Immed Rel [Roxicodone 15 MG] 20 mg PO Q2H PRN #60 tablet 12/17/16 [Rx] Polyethylene Glycol 3350 [MiraLAX Powder Bulk 17.9 Oz] 1 scoop PO DAILY #510 gm 12/17/16 [Rx] Sennosides/Docusate Sodium [Senna Plus] 2 each PO BID #20 tablet 12/17/16 [Rx] levoFLOXacin [Levaquin] 750 mg PO DAILY #5 tablet 12/17/16 [Rx] predniSONE [PredniSONE] See Taper PO DAILY #20 tablet 12/17/16 [Rx] Allergies/Adverse Reactions: Allergies No Known Allergies Allergy (Verified 06/23/16 11:39) Certification: Further, I certify that my clinical findings support that this patient is homebound (i.e. absences from home require considerable and taxing effort and are for medical reasons or worship services or infrequently or short duration when for other reasons) because: Homebound Reason: Patient requires assistance of a person or device to safely leave home Attestation: My signature below is to certify that this patient is under my care and that I, or nurse practitioner, or a physician's assistant film editor working with me, has a face-to -face encounter with this patient.
[2016-12-17] MEDS ORDERED: *HR* Morphine Sulfate SR (12 HR) 15 MG TABLET.ER PO SCH (16:00)
[2016-12-18] MEDS ORDERED: predniSONE 20 MG TABLET PO SCH (09:00)
== END 2016-12-17 14:46 | disposition hospice, home (50) | DRG 140 ==
LOC: 2ANU 19:06 → EMEROO 19:06 → 2ANU 22:00 → SUATTDRO 22:56
PROVIDERS: ADMIT Hospitalist; ATTEND Internal Medicine